=== PATIENT | female | born 1960 | race Caucasian/White ===

== ENCOUNTER 2024-07-02 01:31 | Day surgery (SDC) | payer MEDICARE, MEDICAID, SELFPAY ==
[2024-06-25 09:32] VITALS: BMI 46.5
--- OUTSIDE RECORDS SUMMARY | 2024-07-02 01:34 | XMS_ITS | Patient Health Record ---
Author Organization [facility] Address [address] [place] [address] Care Team Providers Care Gas Cutter Name Role Phone Alen Gay Primary Care Provider [phone] Juancarlos Goyal Unavailable [phone] Peggy Healy Unavailable [phone] CarieMikai Unavailable [phone] Allergies No Known Allergies Results Component Value Reference Range Notes CBC With Differential/Platel et* Reviewed date:11/11/2023 10:53:24 AM Interpretation: Performing Lab:[facility] [place], [address] [facility], [place], Phone - [phone], Director - Niraj Notes/Report: WBC 13.5 3.4-10.8 x10E3/uL RBC 4.42 3.77-5.28 x10E6/uL Hemoglobin 13.2 11.1-15.9 g/dL Hematocrit 40.9 34.0-46.6 % MCV 93 79-97 fL MCH 29.9 26.6-33.0 pg MCHC 32.3 31.5-35.7 g/dL RDW 14.4 11.7-15.4 % Platelets 269 150-450 x10E3/uL Neutrophils 50 Not Estab. % Lymphs 30 Not Estab. % Monocytes 19 Not Estab. % Eos 0 Not Estab. % Basos 0 Not Estab. % Neutrophils (Absolute) 6.8 1.4-7.0 x10E3/uL Lymphs (Absolute) 4.0 0.7-3.1 x10E3/uL Monocytes(Absolute) 2.5 0.1-0.9 x10E3/uL Eos (Absolute) 0.0 0.0-0.4 x10E3/uL Baso (Absolute) 0.0 0.0-0.2 x10E3/uL Immature Granulocytes 1 Not Estab. % Immature Grans (Abs) 0.2 0.0-0.1 x10E3/uL (An elevated percentage of Immature Granulocytes has not been found to be clinically significant as a sole clinical predictor of disease. Does NOT include bands or blast cells. associated physiological leukocytosis may also show increased immature granulocytes without clinical significance.) TSH Rfx on Abnormal to Free T4 Reviewed date:11/11/2023 10:53:24 AM Interpretation: Performing Lab:[facility] [place], [address] [place] [address], Phone - [phone], [facility]Report: TSH 2.240 0.450-4.500 uIU/mL Lipid Panel* Reviewed date:11/11/2023 10:53:24 AM Interpretation: Performing Lab:[facility] [place], [address] [place] [address], Phone - [phone], [facility]/Report: Cholesterol, Total 184 100-199 mg/dL Triglycerides 168 0-149 mg/dL HDL Cholesterol 54 >39 mg/dL VLDL Cholesterol Javier 29 5-40 mg/dL LDL Chol Calc (NIH) 101 0-99 mg/dL CMP 14 Comprehensive Metabol ic Panel* Reviewed date:11/11/2023 10:53:24 AM Interpretation: Performing Lab:[facility] [place], [address] [place] [address], Phone - [phone], [facility]/Report: Glucose 102 70-99 mg/dL BUN 20 8-27 mg/dL Creatinine 0.63 0.57-1.00 mg/dL eGFR 99 >59 mL/min/1.73 BUN/Creatinine Ratio 32 12-28 Sodium 138 134-144 mmol/L Potassium 4.6 3.5-5.2 mmol/L Chloride 100 96-106 mmol/L Carbon Dioxide, Total 22 20-29 mmol/L Calcium 10.2 8.7-10.3 mg/dL Protein, Total 7.2 6.0-8.5 g/dL Albumin 4.3 3.9-4.9 g/dL Globulin, Total 2.9 1.5-4.5 g/dL Bilirubin, Total <0.2 0.0-1.2 mg/dL Alkaline Phosphatase 96 44-121 IU/L AST (SGOT) 15 0-40 IU/L ALT (SGPT) 16 0-32 IU/L Vitamin D, 25-Hydroxy* Reviewed date:11/11/2023 10:53:24 AM Interpretation: Performing Lab:[facility] [place], [address] [facility], Phone - [phone], Director - PhDAmrita Notes/Report: Vitamin D, 25-Hydroxy 31.8 30.0-100.0 ng/mL Vitamin D deficiency has been defined by the [place] of Medicine and an Endocrine Society practice guideline as a level of serum 25-OH vitamin D less than 20 ng/mL (1,2). The Endocrine Society went on to further define vitamin D insufficiency as a level between 21 and 29 ng/mL (2). 1. IOM ([place] of Medicine). 2010. Dietary reference intakes for calcium and D. [place]: The National Academies Press. 2. Toby MF, Shawn MARVIN, Robyn JENKINS, et al. Evaluation, treatment, and prevention of vitamin D deficiency: an Endocrine Society clinical practice guideline. JCEM. 2010; 96(7):1911-30. Hemoglobin A1c* Reviewed date:11/11/2023 10:53:24 AM Interpretation: Performing Lab:[facility] [place], [address] [facility], Phone - [phone], Director - PhDRicmekhii Notes/Report: Hemoglobin A1c 5.7 4.8-5.6 % . Prediabetes: 5.7 - 6.4 Diabetes: >6.4 Glycemic control for adults with diabetes: <7.0 Reason For Referral Reason Pt would like to re- engage in therapy. She just lost her brother on 06/28/2023. She would also like information on grief groups. Diagnosis 1 PTSD (post-traumatic stress disorder) (F43.10) Diagnosis 2 Depression (F32.9) Referral Organization [facility] Referring Provider First Name Chichi Referring Provider Last Name Carie Referring Provider Speciality Psychiatry Referred Provider Specialty [facility]al [facility] Clinical Notes Gwen Davies 07/27 01:06:08 PM >Attempt to contact Consumer. Unable to reach Consumer at this time., Gwen Davies 08/07/2023 08:19:58 AM >Staff ATTILA talks to Consumer. Consumer is in agreement with referral. [facility] resources is given to Consumer. Consumer states they plan on following up but must attend to other business now. Referral addressed, closing. Referral Priority Routine Medications Medication SIG (Take, Route, Frequency, Duration) Notes Start Date End Date Status Mounjaro 5 MG/0.5ML INJECT 5MG SUBCUTANEOUSLY EVERY WEEK for 28 Active tiZANidine HCl 4 MG TAKE 1 TABLET BY BAKARI TH THREE TIMES DAILY NEEDED FOR MUSCULOSKELETAL PAIN for 30 Active traMADol HCl 100 MG 1 tablet Orally once daily Active Diclofenac Sodium 75 MG 1 tablet as need ed Orally Twice a day Active Gabapentin 300 MG 1 capsule Orally at night Active Ergocalciferol 1.25 MG (60863 UT) 1 capsule Orally monthly Act pedrito Senna 8.6 MG 2 tablets at bedtime as needed Orally Once a day for 30 days 06/17/2024 Active Sertraline HCl 100 MG 1 tablet Orally On ce a day in the afternoon for 30 days 06/11/2024 Active hydrOXYzine Pamoate 50 MG 1 capsule Orally Three times a day for 30 days As needed for anxiety Active busPIRone HCl 10 MG 1 tablet Orally Thre e times a day for 30 days 04/20/2024 Active ARIPiprazole 5 MG 1 tablet Orally Once a day for 30 days 04/20/2024 Active diazePAM 2 MG 1 tablet as needed f or anxiety Orally twice a day 06/03/2024 Active Fluticasone-Salmeterol 250-50 MCG/ACT INHALE 1 PUFF TWICE A DAY for 30 Not-Taking Fish Oil 1000 mg TAKE 1 CAPSULE BY [facility] DAILY for 30 Active Promethazine-DM 6.25-15 MG/5ML 5 mL as needed Orally every 6 hrs As needed cough 01/24/2023 Active Benzonatate 100 MG 1 capsule as needed Orally Three times a day for 10 days As needed FOR COUGH 01/07/2023 Active Naltrexone HCl 50 mg TAKE 1 TABLET BY MO [facility] DAILY for 30 Active Zolpidem Tartrate ER 6.25 MG 2 tablets at bedtime as needed Orally Once a day for 7 days 06/12/2024 Active Zolpidem Tartrate ER 12.5 MG 1 tablet at bedtime as needed only for insomnia Orally Once a day. Do NOT take with opioids or alcohol. for 30 days 06/17/2024 Active Immunizations Vaccine Route Administration Date Status Comme nts Tdap IM Intramuscular 12/02/2023 Administered FLU VAC NO PRSV 4VAL 6 mo+ IM Intramuscular 11/19/2021 Administered Pt tolerated injection well FLU VAC NO PRSV 4VAL 6 mo+ IM Intramuscular 11/20/2022 Administered FLU VAC NO PRSV 4VAL 6 mo+ IM Intramuscular 12/02/2023 Administered Social History Tobacco Use: Social History Observation Description Date Details (start date - stop date) Current Smoker NA - NA Sex Assigned At : Social History Observation Description Sex Assigned At Female Alcohol Screen (Audit-C) Question Answer Notes Did you have a drink containing alcohol in the p ast year? No Points 0 Interpretation Negative Dont use, Tobacco use other than smoking: Question Answer Notes Are you an other tobacco user? No Tobacco Control (Standard) Question Answer Notes Tobacco use: Current every day smoker Additional Findings: Tobacco user Moderate cigar ette smoker (10-19 cigs/day) Section Notes: PRESCRIPTION # FILLED WRITTEN DRUG LABEL QTY DAYS STRENGTH MME PRESCRIBER PHARMACY REFILL NO. REFILLS STATE 10/09/2022 10/09/2022 traMADol HYDROCHLORIDE 30.0 30 300 MG 30 SatishKenzie [id number] [place], [place] NA 0 [place] 1 [id number] 09/11/2022 06/11/2022 Gabapentin 90.0 30 300 MG NA Jose E Vilchis Md [id number] [place], [place] NA 2 [place] 1 [id number] 08/28/2022 08/21/2022 traMADol HYDROCHLORIDE 30.0 30 300 MG 30 Satish Kenzie - [id number] [place], [place] NA 0 [place] 1 [id number] 07/31/2022 06/11/2022 Gabapentin 90.0 30 300 MG Jose E Emery Md [id number] PRESCRIPTION # FILLED WRITTEN DRUG LABEL QTY DAYS STRENGTH MME PRESCRIBER PHARMACY REFILL NO. REFILLS STATE 06/11/2022 06/11/2022 Gabapentin 90.0 30 300 MG NA Jose E Vilchis Md [id number] [facility], [place] NA 2 [place] 1 [id number] 05/22/2022 04/30/2022 traMADol HYDROCHLORIDE 30.0 30 300 MG 30 Kenzie Covarrubias Jeovany [id number] [facility], [place] NA 0 [place] 1 [id number] 05/22/2022 05/22/2022 Gabapentin 30.0 30 300 MG NA Alen Gay Md [id number] PRESCRIPTION # FILLED WRITTEN DRUG LABEL QTY DAYS STRENGTH MME PRESCRIBER PHARMACY REFILL NO. REFILLS STATE 06/11/2022 06/11/2022 Gabapentin 90.0 30 300 MG NA Jose E Vilchis Md [id number] [place], [place] NA 2 [place] 1 [id number] 05/22/2022 04/30/2022 traMADol HYDROCHLORIDE 30.0 30 300 MG 30 Satish Kenzie Jeovany [id number] [facility], [place] 1 [id number] 05/22/2022 05/22/2022 Gabapentin 30.0 30 300 MG NA Alen Gay Md [id number] PRESCRIPTION # FILLED WRITTEN DRUG LABEL QTY DAYS STRENGTH MME PRESCRIBER PHARMACY REFILL NO. REFILLS STATE 10/09/2022 10/09/2022 traMADol HYDROCHLORIDE 30.0 30 300 MG 30 Satish Kenzie Jeovany [id number] [facility], [place] 1 [id number] 09/11/2022 06/11/2022 Gabapentin 90.0 30 300 MG NA Jose E Vilchis Md [id number] [facility], [place] 1 [id number] 08/28/2022 08/21/2022 traMADol HYDROCHLORIDE 30.0 30 300 MG 30 Satish Kenzie Jeovany [id number] [place], [place] NA 0 [place] 1 [id number] 07/31/2022 06/11/2022 Gabapentin 90.0 30 300 MG NA Jose E Vilchis Md [id number] PRESCRIPTION # FILLED WRITTEN DRUG LABEL QTY DAYS STRENGTH MME PRESCRIBER PHARMACY REFILL NO. REFILLS STATE 07/11/2023 07/09/2023 traMADol HCL 30.0 30 300 MG 30 Kenzie Covarrubias Jeovany [id number] [facility] [place] [facility] [place] 1 [id number] 06/11/2023 05/29/2023 traMADol HCL 30.0 30 300 MG 30 Kenzie Covarrubias Jeovany [id number] [facility], [place] 1 [id number] 06/09/2023 06/09/2023 Gabapentin 90.0 30 600 MG NA Jose E Vilchis Md [id number] [facility], [place] 1 [id number] 05/09/2023 04/24/2023 traMADol HCL 30.0 30 300 MG 30 Kenzie Covarrubias Jeovany [id number] [place] PRESCRIPTION # FILLED WRITTEN DRUG LABEL QTY DAYS STRENGTH MME PRESCRIBER PHARMACY REFILL NO. REFILLS STATE 07/11/2023 07/09/2023 traMADol HCL 30.0 30 300 MG 30 Kenzie Covarrubias Jeovany [id number] [facility], [place] 1 [id number] 06/11/2023 05/29/2023 traMADol HCL 30.0 30 300 MG 30 Kenzie Covarrubias Jeovany [id number] [facility], [place] 1 [id number] 06/09/2023 06/09/2023 Gabapentin 90.0 30 600 MG NA Jose E Vilchis Md [id number] [facility], [place] 1 [id number] 05/09/2023 04/24/2023 traMADol HCL 30.0 30 300 MG 30 Satish Kenzie Jeovany [id number] [place] PRESCRIPTION #FILLEDWRITTEND RUG LABELQTYDAYSSTRENGTHMMEPRESCRIBERPHARMACYREFILL NO.REFILLSSTATEPATIENT [id number] [id number] YQ85GfntiunKenzie Covarrubias [id number] Frick Hospital, [id number]//3613Dmnvujrcms80.721256 MGNAMJose E swanson Md [id number] Frick Hospital, [id number]/29/202311/traMADol HCL30.893217 WS57PcbwsagKenzie Covarrubias - [id number] PRESCRIPTION # FILLED WRITTEN DRUG LABEL QTY DAYS STRENGTH MME PRESCRIBER PHARMACY REFILL NO. REFILLS STATE 07/11/2023 07/09/2023 traMADol HCL 30.0 30 300 MG 30 Kenzie Covarrubias Jeovany [id number] [facility], [place] 1 [id number] 06/11/2023 05/29/2023 traMADol HCL 30.0 30 300 MG 30 Satish Kenzie Jeovany [id number] [place], [place] NA 0 [place] 1 [id number] 06/09/2023 06/09/2023 Gabapentin 90.0 30 600 MG NA Jose E Vilchis Md [id number] [place], [place] NA 0 [place] 1 [id number] 05/09/2023 04/24/2023 traMADol HCL 30.0 30 300 MG 30 Kenzie Covarrubias - [id number] [place] PRESCRIPTION # FILLED WRITTEN DRUG LABEL QTY DAYS STRENGTH MME PRESCRIBER PHARMACY REFILL NO. REFILLS STATE 06/24/2022 06/24/2022 traMADol HYDROCHLORIDE 30.0 30 300 MG 30 Satish Kenzie Jeovany [id number] [facility], [place] 1 [id number] 06/11/2022 06/11/2022 Gabapentin 90.0 30 300 MG NA Jose E Vilchis Md [id number] [facility], [place] 2 [place] 1 [id number] 05/22/2022 04/30/2022 traMADol HYDROCHLORIDE 30.0 30 300 MG 30 Satish Kenzie Jeovany [id number] PRESCRIPTION # FILLED WRITTEN DRUG LABEL QTY DAYS STRENGTH MME PRESCRIBER PHARMACY REFILL NO. REFILLS STATE 09/11/2022 06/11/2022 Gabapentin 90.0 30 300 MG NA Jose E Vilchis Md [id number] [facility], [place] 2 [place] 1 [id number] 08/28/2022 08/21/2022 traMADol HYDROCHLORIDE 30.0 30 300 MG 30 Kenzie Covarrubias [id number] [facility], [place] 1 [id number] 07/31/2022 06/11/2022 Gabapentin 90.0 30 300 MG NA [place] PRESCRIPTION # FILLED WRITTEN DRUG LABEL QTY DAYS STRENGTH MME PRESCRIBER PHARMACY REFILL NO. REFILLS STATE 10/09/2022 10/09/2022 traMADol HYDROCHLORIDE 30.0 30 300 MG 30 Kenzie Covarrubias Jeovany [id number] [facility], [place] 1 [id number] 09/11/2022 06/11/2022 Gabapentin 90.0 30 300 MG NA Jose E Vilchis Md [id number] [place], [place] NA 2 [place] 1 [id number] 08/28/2022 08/21/2022 traMADol HYDROCHLORIDE 30.0 30 300 MG 30 Kenzie Covarrubias Jeovany [id number] [facility], [place] 1 [id number] 07/31/2022 06/11/2022 Gabapentin 90.0 30 300 MG NA Jose E Vilchis Md [id number] PRESCRIPTION # FILLED WRITTEN DRUG LABEL QTY DAYS STRENGTH MME PRESCRIBER PHARMACY REFILL NO. REFILLS STATE 07/11/2023 07/09/2023 traMADol HCL 30.0 30 300 MG 30 Kenzie Covarrubias Jeovany [id number] [facility], [place] 1 [id number] 06/11/2023 05/29/2023 traMADol HCL 30.0 30 300 MG 30 Kenzie Covarrubias Jeovany [id number] [facility], [place] 1 [id number] 06/09/2023 06/09/2023 Gabapentin 90.0 30 600 MG NA Jose E Vilchis Md [id number] [place], [place] NA 0 [place] 1 [id number] 05/09/2023 04/24/2023 traMADol HCL 30.0 30 300 MG 30 Satish [address] [id number] [facility] PRESCRIPTION #FILLEDWRITTEND RUG LABELQTYDAYSSTRENGTHMMEPRESCRIBERPHARMACYREFILL NO.REFILLSSTATEPATIENT [id number]//09/2023traMADol HCL30.719641 XJ72Knohqhq, Kenzie [id number] Frick Hospital, [id number]//09/2023traMADol HCL30.304476 BN25Hkmgemf, Kenzie [id number] Frick Hospital, [id number]//08/2022traMADol HCL15.300696 NJ85Igipknf, [facility] [id number] PRESCRIPTION # FILLED WRITTE N DRUG LABEL QTY DAYS STRENGTH MME PRESCRIBER PHARMACY REFILL NO. REFILLS STATE PATIENT [id number] 06/11/2023 05/29/2023 traMADol HCL 30.0 30 300 MG 30 Kenzie Covarrubias [id number] [facility], [place] 0 [place] [id number] 06/09/2023 06/09/2023 Gabapentin 90.0 30 600 MG NA Jose E Vilchis Md - [id number] [facility], [place] NA 0 [place] [id number] 05/09/2023 04/24/2023 traMADol HCL 30.0 30 300 MG 30 Kenize Covarrubias [id number] [facility], [place] 0 [place] [id number] 03/28/2023 03/20/2023 traMADol HCL 30.0 30 300 MG 30 Kenzie Covarrubias [id number] [facility] PRESCRIPTION # FILLED WRITTEN DRUG LABEL QTY DAYS STRENGTH MME PRESCRIBER PHARMACY REFILL NO. REFILLS STATE 07/11/2023 07/09/2023 traMADol HCL 30.0 30 300 MG 30 Kenzie Covarrubias [id number] [facility], [place] 1 [id number] 06/11/2023 05/29/2023 traMADol HCL 30.0 30 300 MG 30 Kenzie Covarrubias [id number] [facility], [place] NA 0 [place] 1 [id number] 06/09/2023 06/09/2023 Gabapentin 90.0 30 600 MG NA Jose E Vilchis Md [id number] [place], [place] NA 0 [place] 1 [id number] 05/09/2023 04/24/2023 traMADol HCL 30.0 30 300 MG 30 Kenzie Covarrubias [id number] [facility] PRESCRIPTION # FILLED WRITTE N DRUG LABEL QTY DAYS STRENGTH MME PRESCRIBER PHARMACY REFILL NO. REFILLS STATE PATIENT [id number] 02/26/2023 02/17/2023 traMADol HCL 30.0 30 300 MG 30 Kenzie Covarrubias [id number] [place], [place] NA 0 [place] [id number] 02/08/2023 01/16/2023 traMADol HCL 15.0 15 300 MG 30 Kenzie Covarrubias [id number] [place], [place] NA 0 [place] [id number] 01/15/2023 12/17/2022 Gabapentin 90.0 30 600 MG NA Jose E Vilchis Md [id number] [facility] PRESCRIPTION # FILLED WRITTE N DRUG LABEL QTY DAYS STRENGTH MME PRESCRIBER PHARMACY REFILL NO. REFILLS STATE PATIENT [id number] 05/09/2023 04/24/2023 traMADol HCL 30.0 30 300 MG 30 Kenzie Covarrubias [id number] [facility] [place] [facility] [place] [id number] 03/28/2023 03/20/2023 traMADol HCL 30.0 30 300 MG 30 Kenzie Covarrubias [id number] [facility] [place] [facility] [place] [id number] 02/26/2023 02/17/2023 traMADol HCL 30.0 30 300 MG 30 Kenzie Covarrubias [id number] [facility] Problems Problem Type SNOMED Code ICD Code Onset Dates Problem Status W/U Status Risk Notes Problem Morbid obesity (disorder) (771136490) Morbid (severe) obesity due to excess calories (E66.01) Active confirmed Problem Tobacco user (966812958) Nicotine dependence, unspecified, uncomplicated (F17.200) Active confirmed Problem Generalized anxiety disorder (92005349) Generalized anxiety disorder (F41.1) Active confirmed Problem Acute stress reaction (03344024) Acute stress reaction (F43.0) Active confirmed Problem 21058247 Insomnia due to other mental disorder (F51.05) Active confirmed Problem 41303881 Obstructive sleep apnea (adult) (pediatric) (G47.33) Active confirmed Problem 47298943 Other chronic pain (G89.29) Active confirmed Problem 04505137457638866 Sciatica, righ t side (M54.31) Active confirmed Problem 92778756 Sciatica, left side (M54.32) Active confirmed Problem 569781091 Fibromyalgia (M79.7) Active confirmed Problem 24323136 Age-related osteoporosis without current pathological fracture (M81.0) Active confirmed Problem 612001110 Dependence on other enabling machines and devices (Z99.89) 021 Active confirmed Problem Depression (180933587) Depression (F32.9) 019 Active confirmed Problem Insomnia (226375852) Insomnia (G47.00) Active confirmed Problem Posttraumatic stress disorder (06043277) PTSD (post-traumatic stress disorder) (F43.10) Active confirmed Problem COPD - Chronic obstructive pulmonary disease (51027216) COPD (chronic obstructive pulmonary disease) (J44.9) Active confirmed Problem Vitamin D deficiency (72692428) Vitamin D deficiency (E55.9) Active confirmed Problem 372360948 Morbid obesity (E66.01) Active confirmed Problem Sleep apnea (85573372) Sleep apnea (G47.30) Active confirmed WEARS CPAP AND OXYGEN AT NIGHT Problem 327720319 COPD exacerbation (J44.1) Active confirmed Problem Restless legs (55050704) Restless legs (G25.81) Active confirmed Problem Constipation (03455351) Constipation (K59.00) Active confirmed Problem 11546913 Chronic fatigue (R53.82) Active confirmed Problem 780319383 Type 2 diabetes mellitus without complication, without long-term current use of insulin (E11.9) 021 Active confirmed Problem 91236757 Sleep apnea, unspecified type (G47.30) Active confirmed Problem 598092399 Primary osteoarthritis of both knees (M17.0) Active confirmed Problem Chronic rhinitis (61935218) Rhinitis, unspecified type (J31.0) Active confirmed Problem Nicotine use disorder (2529192161) Nicotine use disorder (F17.200) Active confirmed Problem Tobacco use (847077862) Tobacco use disorder (F17.200) Active confirmed Problem 782276386 Sensorineural hearing loss (SNHL) of both ears (H90.3) Active confirmed Problem 393975921 Decreased hearing of both ears (H91.93) Active confirmed Problem Morbid obesity (218796704) Obesity, morbid, BMI 40.0-49.9 (E66.01) Active confirmed Problem 33677141 Pulmonary hypertension (I27.20) Active confirmed Problem 579544568 Uncomplicated asthma, unspecified asthma severity, unspecified whether persistent (J45.909) Active confirmed Problem 0991639119645263 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) Active confirmed Problem 79393662 Left ventricular hypertrophy (I51.7) 021 Active confirmed WITH LVEF 55% Problem 016354 Mild valvular heart disease (I38) 021 Active confirmed AR, MR, TR Vital Signs Heart Rate 122 /min 06/16/2024 Respiratory Rate 16 /min 12/02/2023 Oximetry 98 % 06/16/2024 Blood pressure diastolic 82 mm Hg 06/16/2024 Height 59 in 06/16/2024 Blood pressure systolic 128 mm Hg 06/16/2024 Weight 232.8 lbs 06/16/2024 BMI 47.01 kg/m2 06/16/2024 Encounters Encounter Location Date Provider Diagnosis [address] [address] 11/06/2023 Alen Gay [address] [address] 07/28/2023 Chichi Darnell Depression F32.9 ; PTSD (post-traumatic stress disorder) F43.10 and Nicotine use disorder F17.[address] [address] 10/27/2023 Juancarlos Goyal Nicotine dependence, unspecified, uncomplicated F17.200 ; Depression F32.9 ; PTSD (post-traumatic stress disorder) F43.10 and Insomnia G47.[address] [address] 11/06/2023 Alen Gay Primary osteoarthritis of both knees M17.0 ; Type 2 diabetes mellitus without complication, without long-term current use of insulin E11.9 ; Vitamin D deficiency E55.9 ; Fatigue R53.83 ; Occult blood in stools R19.5 ; Screening for colon cancer Z12.11 ; Breast cancer screening by mammogram Z12.31 ; Nutritional counseling Z71.3 and Obesity, morbid, BMI 40.0-49.[address] [address] 11/24/2023 Juancarlos Goyal Depression F32.9 ; PTSD (post-traumatic stress disorder) F43.10 and Insomnia G47.[address] [address] 12/02/2023 Alen Gay Type 2 diabetes mellitus without complication, without long-term current use of insulin E11.9 ; Morbid (severe) obesity due to excess calories E66.01 and Encounter for immunization Z23 [address] [address] 12/24/2023 Juancarlos Goyal Depression F32.9 ; Insomnia G47.00 and PTSD (post-traumatic stress disorder) F43.[address] [address] 03/22/2024 Juancarlos Goyal Depression F32.9 ; Insomnia G47.00 and PTSD (post-traumatic stress disorder) F43.[address] [address] 04/20/2024 Juancarlos Goyal Depression F32.9 ; Insomnia G47.00 and PTSD (post-traumatic stress disorder) F43.[address] [address] 05/06/2024 Juancarlos Goyal Depression F32.9 ; Insomnia due to other mental disorder F51.05 ; PTSD (post-traumatic stress disorder) F43.10 and Constipation K59.[address] [address] 06/16/2024 Juancarlos Goyal Depression F32.9 ; Insomnia due to other mental disorder F51.05 ; PTSD (post-traumatic stress disorder) F43.10 ; Constipation K59.00 and Acute stress reaction F43.[address] [address] 08/07/2023 Peggy Niraj [address] [address] 10/15/2023 Juancarlos Goyal Depression F32.9 and PTSD (post-traumatic stress disorder) F43.[address] [address] 10/27/2023 Alen Gay Encounter for screening mammogram for breast cancer Z12.[address] [address] 10/27/2023 Juancarlos Goyal [address] [address] 11/19/2023 Juancarlos Goyal [address] [address] 11/24/2023 Juancarlos Goyal Insomnia due to othe r mental disorder F51.[address] [address] 11/24/2023 Alen Gay [address] [address] 12/11/2023 Juancarlos Goyal Depression F32.9 [facility] [address] [place] [address] 12/15/2023 Juancarlos Goyal Insomnia G47.00 [facility] [address] [place] [address] 04/19/2024 Juancarlos Goyal [facility] [address] [address] 04/21/2024 Juancarlos Goyal Insomnia G47.00 [facility] [address] [place] [address] 06/02/2024 Juancarlos Goyal Acute stress reactio n F43.0 [facility] [address] [place] [address] 06/11/2024 Juancarlos Goyal Depression F32.9 ; PTSD (post-traumatic stress disorder) F43.10 and Insomnia due to other mental disorder F51.05 [facility] [address] [place] [address] 06/17/2024 Juancarlos Goyal Assessments Encounter Date Diagnosis (ICD Code) Assessment Notes Treatment Notes Treatment Clinical Notes Section Notes 12/02/2023 Type 2 diabetes mellitus without complication, without long-term current use of insulin (ICD-10 - E11.9) 11/24/2023 Insomnia due to other mental disorder (ICD-10 - F51.05) 06/16/2024 Depression (ICD-10 - F32.9) Client maintain relative stability given her 1 year old dog was struck and killed by an automobile a week ago and she was tightly bonded to the dog. This was large loss in a series of emotional losses over the last few years. Client has reached a better level of mental stability in last month on combination of Abilify, Zoloft, Buspar, Hydroxyzine and use of extended release Ambien for sleep. She has had very disrupted sleep impacted by her depression and anxiety. She has a lot of medical comorbidities and every effort has been made to utilize other medications for sleep over the years with no result and her mental health has seemed to continue to decline. Trazodone, doxepin, Seroquel, mirtazpine, Ramelteon, melatonin, clonodine, visteril dosed at night, immediate release Ambien have all failed. She does wear a CPAP and sees sleep medicine and nursing has updated their office on trials of these sleep medications. She found a moderate level of relief with 6.25 mg of ER Zolipidem but was finally able to sleep throughout the night with 12.5 mg of Zolipidem and has been sleeping through the night. Her anxiety level is notably down comparative to recent past despite this intense loss. She states she does not want to change her medicine treatment plan but wants to go through the grieving process for her dog and then reassess. She has the crisis line and is aware therapy services are available. 06/11/2024 Depression (ICD-10 - F32.9) 04/21/2024 Insomnia (ICD-10 - G47.00) 05/06/2024 Insomnia due to other mental disorder (ICD-10 - F51.05) 05/06/2024 Depression (ICD-10 - F32.9) 04/20/2024 Depression (ICD-10 - F32.9) Client struggling with severe depression and anxiety excerbated by lack of sleep. Sleep difficult to balance given hx of medical comorbities (including sleep apnea). She has failed multiple sleep aides: Remeron, trazodone, doxepin, ambien. Her sleep cycle is not being extended by Ambien immediate release and this is why Ambien extended release in its lowest dose was written for in generic form. Client does not feel her depression has been assisted by Rexulti or bupropion and wants these medications discontinued and replaced by something else . Discussed raising dose of sertraline to 100 mg and adding aripiprazole to treatment plan in place of Rexulti. She is agreeable after risk versus benefit discussed. Buspar readded to tx plan and hydroxzyine dose increased to tx her severe anxiety. Client warned about anticholinergic side effects and what to look for. Client given crisis line number and asked to call if needed. 07/28/2023 Depression (ICD-10 - F32.9) PHQ-9 is 19 today. Pt refuses warm handoff to crisis. Continue Wellbutrin to augement duloxetine. Discussed risks, benefits, and side effects. Encouraged therapy. Follow up in 1 month 11/06/2023 Type 2 diabetes mellitus without complication, without long-term current use of insulin (ICD-10 - E11.9) 11/06/2023 Primary osteoarthritis of both knees (ICD-10 - M17.0) 06/02/2024 Acute stress reaction (ICD-10 - F43.0) 12/02/2023 Morbid (severe) obesity due to excess calories (ICD-10 - E66.01) INCREASE RESISTANCE EXERCISES AND CHAIR YOGA TO 20-30 MINUTES PER DAY 10/27/2023 Encounter for screening mammogram for breast cancer (ICD-10 - Z12.31) Patient Educated with: Mammogram - About this test.pdf (Mammogram - About this test.pdf) Patient Educated with: Learning about Breast Cancer Screenings.pdf (Learning about Breast Cancer Screenings.pdf) 10/27/2023 Nicotine dependence, unspecified, uncomplicated (ICD-10 - F17.200) Client has failed mirtazapine, hydroxyzine, doxepin, trazodone, prazosin, clonidine, aggressive sleep hygiene for insomnia. Already wears CPAP. States she lies in bed for hours with anxiety. Has only been getting a few hours of sleep a night for as long as I can remember but its been getting worse with my grief of my brother for the past few months . Sleep medicine aware mental health writing for sleep aides. Had mask/machine adjusted last month per her report. Discussed a few different treatment options and client would like to trial a combination approach of low dose Rexulti (for anxiety/PTSD/dep ression) and low dose Ambien (for continued and progressive insomnia). The risk vs benefit of these medications, particularly at client's age and medical co-morbidities, were discussed. Given what client has failed already, it is reasonable to transition to next line agents at low dose and closely monitor. Additionally the risk of Ambien 2.5 mg-5 mg and Rexulti 0.5 mg presents comparative to 50 mg TID dosing of hydroxyzine paired with 25 mg of doxepin would not be more burdensome - Buspar, doxepin, and hydroxyzine dcd due to ineffectiveness and client has not been taking for a few weeks. Encouraged client to re-engage in grief support group and states she is seriously considering. 10/27/2023 Depression (ICD-10 - F32.9) Client has failed mirtazapine, hydroxyzine, doxepin, trazodone, prazosin, clonidine, aggressive sleep hygiene for insomnia. Already wears CPAP. States she lies in bed for hours with anxiety. Has only been getting a few hours of sleep a night for as long as I can remember but its been getting worse with my grief of my brother for the past few months . Sleep medicine aware mental health writing for sleep aides. Had mask/machine adjusted last month per her report. Discussed a few different treatment options and client would like to trial a combination approach of low dose Rexulti (for anxiety/PTSD/dep ression) and low dose Ambien (for continued and progressive insomnia). The risk vs benefit of these medications, particularly at client's age and medical co-morbidities, were discussed. Given what client has failed already, it is reasonable to transition to next line agents at low dose and closely monitor. Additionally the risk of Ambien 2.5 mg-5 mg and Rexulti 0.5 mg presents comparative to 50 mg TID dosing of hydroxyzine paired with 25 mg of doxepin would not be more burdensome - Buspar, doxepin, and hydroxyzine dcd due to ineffectiveness and client has not been taking for a few weeks. Encouraged client to re-engage in grief support group and states she is seriously considering. 10/15/2023 Depression (ICD-10 - F32.9) 03/22/2024 Depression (ICD-10 - F32.9) Client states she felt she was improved with her treatment plan but fell off. Wants to restart and reassess. 12/15/2023 Insomnia (ICD-10 - G47.00) 11/24/2023 Depression (ICD-10 - F32.9) Client has been assisted significantly by trial of Ambien as she has been able to procure 4 hours of sleep which is the most sleep she has had for many, many months. She is trying to lose weight due to her osteoarthritis and previous sleep aides were causing increase to weight and were not effective to insomnia. Client does take tramadol/gabapen tin for chronic pain, has been educated to not take near bedtime due to risk of respiratory depression. Client requests increase to Ambien. Has had no side effects and wears CPAP. DIscussed will need clearance from her ANOOP doctor given her hx of COPD and ANOOP. Will have nursing call Dr. Quintanilla to receive clearance. Client states her depression has lessened with Rexulti and bupropion, and she would like increases in this. She restarted BuSpar/hydroxyzi ne at noon only and feels this has helped her anxiety as well. Will restart these. 12/24/2023 Depression (ICD-10 - F32.9) Client c/o anxiety and depressive symptoms ongoing and insomnia but when questioned insomnia is better and client getting nearly 6 hours of sleep now. Was getting 3 hours when took over care. She states having increased anxiety in evenings, when alone, worsened with time change. Has had wt gain, but she states she has not been good with healthy food options and does not think it is the Rexulti but rather eating too much bad food and not enough exercise. Will continue to monitor. Buspar stopped and sertraline started to tx anxiety/PTSD (client keeps mixing up bupropion and buspirone due to how similar names are anyhow and this could be dangerous). She feels her anxiety is out of control still. She wants to take something in the afternoon. Discussed to take the sertraline in the afternoon. Hopeful this will pair well with the Wellbutrin and Rexulti for tx of PTSD. 12/11/2023 Depression (ICD-10 - F32.9) 12/24/2023 Insomnia (ICD-10 - G47.00) Client c/o anxiety and depressive symptoms ongoing and insomnia but when questioned insomnia is better and client getting nearly 6 hours of sleep now. Was getting 3 hours when took over care. She states having increased anxiety in evenings, when alone, worsened with time change. Has had wt gain, but she states she has not been good with healthy food options and does not think it is the Rexulti but rather eating too much bad food and not enough exercise. Will continue to monitor. Buspar stopped and sertraline started to tx anxiety/PTSD (client keeps mixing up bupropion and buspirone due to how similar names are anyhow and this could be dangerous). She feels her anxiety is out of control still. She wants to take something in the afternoon. Discussed to take the sertraline in the afternoon. Hopeful this will pair well with the Wellbutrin and Rexulti for tx of PTSD. 11/24/2023 PTSD (post-traumatic stress disorder) (ICD-10 - F43.10) Client has been assisted significantly by trial of Ambien as she has been able to procure 4 hours of sleep which is the most sleep she has had for many, many months. She is trying to lose weight due to her osteoarthritis and previous sleep aides were causing increase to weight and were not effective to insomnia. Client does take tramadol/gabapen tin for chronic pain, has been educated to not take near bedtime due to risk of respiratory depression. Client requests increase to Ambien. Has had no side effects and wears CPAP. DIscussed will need clearance from her ANOOP doctor given her hx of COPD and ANOOP. Will have nursing call Dr. Quintanilla to receive clearance. Client states her depression has lessened with Rexulti and bupropion, and she would like increases in this. She restarted BuSpar/hydroxyzi ne at noon only and feels this has helped her anxiety as well. Will restart these. 03/22/2024 Insomnia (ICD-10 - G47.00) Client states she felt she was improved with her treatment plan but fell off. Wants to restart and reassess. 10/27/2023 PTSD (post-traumatic stress disorder) (ICD-10 - F43.10) Client has failed mirtazapine, hydroxyzine, doxepin, trazodone, prazosin, clonidine, aggressive sleep hygiene for insomnia. Already wears CPAP. States she lies in bed for hours with anxiety. Has only been getting a few hours of sleep a night for as long as I can remember but its been getting worse with my grief of my brother for the past few months . Sleep medicine aware mental health writing for sleep aides. Had mask/machine adjusted last month per her report. Discussed a few different treatment options and client would like to trial a combination approach of low dose Rexulti (for anxiety/PTSD/dep ression) and low dose Ambien (for continued and progressive insomnia). The risk vs benefit of these medications, particularly at client's age and medical co-morbidities, were discussed. Given what client has failed already, it is reasonable to transition to next line agents at low dose and closely monitor. Additionally the risk of Ambien 2.5 mg-5 mg and Rexulti 0.5 mg presents comparative to 50 mg TID dosing of hydroxyzine paired with 25 mg of doxepin would not be more burdensome - Buspar, doxepin, and hydroxyzine dcd due to ineffectiveness and client has not been taking for a few weeks. Encouraged client to re-engage in grief support group and states she is seriously considering. 10/15/2023 PTSD (post-traumatic stress disorder) (ICD-10 - F43.10) 12/02/2023 Encounter for immunization (ICD-10 - Z23) Ordered per standing orders for administering influenza vaccine to adults. 07/28/2023 PTSD (post-traumatic stress disorder) (ICD-10 - F43.10) Remeron-not effective Trazodone-not effective Minipress-not effective Clonidine-not effective Continue buspirone Continue vistaril Encouraged therapy. 04/20/2024 Insomnia (ICD-10 - G47.00) Client struggling with severe depression and anxiety excerbated by lack of sleep. Sleep difficult to balance given hx of medical comorbities (including sleep apnea). She has failed multiple sleep aides: Remeron, trazodone, doxepin, ambien. Her sleep cycle is not being extended by Ambien immediate release and this is why Ambien extended release in its lowest dose was written for in generic form. Client does not feel her depression has been assisted by Rexulti or bupropion and wants these medications discontinued and replaced by something else . Discussed raising dose of sertraline to 100 mg and adding aripiprazole to treatment plan in place of Rexulti. She is agreeable after risk versus benefit discussed. Buspar readded to tx plan and hydroxzyine dose increased to tx her severe anxiety. Client warned about anticholinergic side effects and what to look for. Client given crisis line number and asked to call if needed. 05/06/2024 PTSD (post-traumatic stress disorder) (ICD-10 - F43.10) 06/16/2024 Insomnia due to other mental disorder (ICD-10 - F51.05) Client maintain relative stability given her 1 year old dog was struck and killed by an automobile a week ago and she was tightly bonded to the dog. This was large loss in a series of emotional losses over the last few years. Client has reached a better level of mental stability in last month on combination of Abilify, Zoloft, Buspar, Hydroxyzine and use of extended release Ambien for sleep. She has had very disrupted sleep impacted by her depression and anxiety. She has a lot of medical comorbidities and every effort has been made to utilize other medications for sleep over the years with no result and her mental health has seemed to continue to decline. Trazodone, doxepin, Seroquel, mirtazpine, Ramelteon, melatonin, clonodine, visteril dosed at night, immediate release Ambien have all failed. She does wear a CPAP and sees sleep medicine and nursing has updated their office on trials of these sleep medications. She found a moderate level of relief with 6.25 mg of ER Zolipidem but was finally able to sleep throughout the night with 12.5 mg of Zolipidem and has been sleeping through the night. Her anxiety level is notably down comparative to recent past despite this intense loss. She states she does not want to change her medicine treatment plan but wants to go through the grieving process for her dog and then reassess. She has the crisis line and is aware therapy services are available. 06/11/2024 PTSD (post-traumatic stress disorder) (ICD-10 - F43.10) 11/06/2023 Vitamin D deficiency (ICD-10 - E55.9) 11/06/2023 Fatigue (ICD-10 - R53.83) 06/16/2024 PTSD (post-traumatic stress disorder) (ICD-10 - F43.10) Client maintain relative stability given her 1 year old dog was struck and killed by an automobile a week ago and she was tightly bonded to the dog. This was large loss in a series of emotional losses over the last few years. Client has reached a better level of mental stability in last month on combination of Abilify, Zoloft, Buspar, Hydroxyzine and use of extended release Ambien for sleep. She has had very disrupted sleep impacted by her depression and anxiety. She has a lot of medical comorbidities and every effort has been made to utilize other medications for sleep over the years with no result and her mental health has seemed to continue to decline. Trazodone, doxepin, Seroquel, mirtazpine, Ramelteon, melatonin, clonodine, visteril dosed at night, immediate release Ambien have all failed. She does wear a CPAP and sees sleep medicine and nursing has updated their office on trials of these sleep medications. She found a moderate level of relief with 6.25 mg of ER Zolipidem but was finally able to sleep throughout the night with 12.5 mg of Zolipidem and has been sleeping through the night. Her anxiety level is notably down comparative to recent past despite this intense loss. She states she does not want to change her medicine treatment plan but wants to go through the grieving process for her dog and then reassess. She has the crisis line and is aware therapy services are available. 05/06/2024 Constipation (ICD-10 - K59.00) 04/20/2024 PTSD (post-traumatic stress disorder) (ICD-10 - F43.10) Client struggling with severe depression and anxiety excerbated by lack of sleep. Sleep difficult to balance given hx of medical comorbities (including sleep apnea). She has failed multiple sleep aides: Remeron, trazodone, doxepin, ambien. Her sleep cycle is not being extended by Ambien immediate release and this is why Ambien extended release in its lowest dose was written for in generic form. Client does not feel her depression has been assisted by Rexulti or bupropion and wants these medications discontinued and replaced by something else . Discussed raising dose of sertraline to 100 mg and adding aripiprazole to treatment plan in place of Rexulti. She is agreeable after risk versus benefit discussed. Buspar readded to tx plan and hydroxzyine dose increased to tx her severe anxiety. Client warned about anticholinergic side effects and what to look for. Client given crisis line number and asked to call if needed. 07/28/2023 Nicotine use disorder (ICD-10 - F17.200) 06/11/2024 Insomnia due to other mental disorder (ICD-10 - F51.05) 10/27/2023 Insomnia (ICD-10 - G47.00) Client has failed mirtazapine, hydroxyzine, doxepin, trazodone, prazosin, clonidine, aggressive sleep hygiene for insomnia. Already wears CPAP. States she lies in bed for hours with anxiety. Has only been getting a few hours of sleep a night for as long as I can remember but its been getting worse with my grief of my brother for the past few months . Sleep medicine aware mental health writing for sleep aides. Had mask/machine adjusted last month per her report. Discussed a few different treatment options and client would like to trial a combination approach of low dose Rexulti (for anxiety/PTSD/dep ression) and low dose Ambien (for continued and progressive insomnia). The risk vs benefit of these medications, particularly at client's age and medical co-morbidities, were discussed. Given what client has failed already, it is reasonable to transition to next line agents at low dose and closely monitor. Additionally the risk of Ambien 2.5 mg-5 mg and Rexulti 0.5 mg presents comparative to 50 mg TID dosing of hydroxyzine paired with 25 mg of doxepin would not be more burdensome - Buspar, doxepin, and hydroxyzine dcd due to ineffectiveness and client has not been taking for a few weeks. Encouraged client to re-engage in grief support group and states she is seriously considering. 03/22/2024 PTSD (post-traumatic stress disorder) (ICD-10 - F43.10) Client states she felt she was improved with her treatment plan but fell off. Wants to restart and reassess. 12/24/2023 PTSD (post-traumatic stress disorder) (ICD-10 - F43.10) Client c/o anxiety and depressive symptoms ongoing and insomnia but when questioned insomnia is better and client getting nearly 6 hours of sleep now. Was getting 3 hours when took over care. She states having increased anxiety in evenings, when alone, worsened with time change. Has had wt gain, but she states she has not been good with healthy food options and does not think it is the Rexulti but rather eating too much bad food and not enough exercise. Will continue to monitor. Buspar stopped and sertraline started to tx anxiety/PTSD (client keeps mixing up bupropion and buspirone due to how similar names are anyhow and this could be dangerous). She feels her anxiety is out of control still. She wants to take something in the afternoon. Discussed to take the sertraline in the afternoon. Hopeful this will pair well with the Wellbutrin and Rexulti for tx of PTSD. 11/24/2023 Insomnia (ICD-10 - G47.00) Client has been assisted significantly by trial of Ambien as she has been able to procure 4 hours of sleep which is the most sleep she has had for many, many months. She is trying to lose weight due to her osteoarthritis and previous sleep aides were causing increase to weight and were not effective to insomnia. Client does take tramadol/gabapen tin for chronic pain, has been educated to not take near bedtime due to risk of respiratory depression. Client requests increase to Ambien. Has had no side effects and wears CPAP. DIscussed will need clearance from her ANOOP doctor given her hx of COPD and ANOOP. Will have nursing call Dr. Quintanilla to receive clearance. Client states her depression has lessened with Rexulti and bupropion, and she would like increases in this. She restarted BuSpar/hydroxyzi ne at noon only and feels this has helped her anxiety as well. Will restart these. 11/06/2023 Occult blood in stools (ICD-10 - R19.5) 06/16/2024 Constipation (ICD-10 - K59.00) Client maintain relative stability given her 1 year old dog was struck and killed by an automobile a week ago and she was tightly bonded to the dog. This was large loss in a series of emotional losses over the last few years. Client has reached a better level of mental stability in last month on combination of Abilify, Zoloft, Buspar, Hydroxyzine and use of extended release Ambien for sleep. She has had very disrupted sleep impacted by her depression and anxiety. She has a lot of medical comorbidities and every effort has been made to utilize other medications for sleep over the years with no result and her mental health has seemed to continue to decline. Trazodone, doxepin, Seroquel, mirtazpine, Ramelteon, melatonin, clonodine, visteril dosed at night, immediate release Ambien have all failed. She does wear a CPAP and sees sleep medicine and nursing has updated their office on trials of these sleep medications. She found a moderate level of relief with 6.25 mg of ER Zolipidem but was finally able to sleep throughout the night with 12.5 mg of Zolipidem and has been sleeping through the night. Her anxiety level is notably down comparative to recent past despite this intense loss. She states she does not want to change her medicine treatment plan but wants to go through the grieving process for her dog and then reassess. She has the crisis line and is aware therapy services are available. 06/16/2024 Acute stress reaction (ICD-10 - F43.0) Client maintain relative stability given her 1 year old dog was struck and killed by an automobile a week ago and she was tightly bonded to the dog. This was large loss in a series of emotional losses over the last few years. Client has reached a better level of mental stability in last month on combination of Abilify, Zoloft, Buspar, Hydroxyzine and use of extended release Ambien for sleep. She has had very disrupted sleep impacted by her depression and anxiety. She has a lot of medical comorbidities and every effort has been made to utilize other medications for sleep over the years with no result and her mental health has seemed to continue to decline. Trazodone, doxepin, Seroquel, mirtazpine, Ramelteon, melatonin, clonodine, visteril dosed at night, immediate release Ambien have all failed. She does wear a CPAP and sees sleep medicine and nursing has updated their office on trials of these sleep medications. She found a moderate level of relief with 6.25 mg of ER Zolipidem but was finally able to sleep throughout the night with 12.5 mg of Zolipidem and has been sleeping through the night. Her anxiety level is notably down comparative to recent past despite this intense loss. She states she does not want to change her medicine treatment plan but wants to go through the grieving process for her dog and then reassess. She has the crisis line and is aware therapy services are available. 11/06/2023 Screening for colon cancer (ICD-10 - Z12.11) 11/06/2023 Breast cancer screening by mammogram (ICD-10 - Z12.31) 11/06/2023 Nutritional counseling (ICD-10 - Z71.3) 11/06/2023 Obesity, morbid, BMI 40.0-49.9 (ICD-10 - E66.01) 07/28/2023 Other Patient was educated on diagnosis and symptoms. Discussed the treatment plan, patient is agreeable and accepting of treatment plan. Patient denies further questions or concerns currently. Discussed sleep hygiene and caffeine intake. Encouraged to improve diet, get regular exercise, daily relaxation, and work on managing stress levels.Return to clinic 4 weeks.Labs are up to date. Referred for counseling.The Patient/Guardian is aware of the need to contact the office or return for an earlier appointment if any problems or concerns arise. May also contact the 24-hour crisis hotline (R), refer to the closest emergency room or call 911 if new symptoms arise of existing symptoms worsen; the Patient/Guardian is aware that this would apply to symptoms such as: suicidal ideation, homicidal ideation, high risk behaviors, manic symptoms, psychotic symptoms, physical symptoms, or any other symptoms that may be dangerous to self or others.Greater than 50% of time spent on coordination and counseling where psychopharmacology as well as psychotherapeutic interventions were discussed along with review of treatments in the past.Patient/Guardi an was educated about treatments including benefits and risks, alternatives, potential medication side effects, black box warning, and risks of failure if not treated. The Patient/Guardian asked appropriate questions, appeared to understand the answers, and decided to accept the treatment and continue being followed.Discussed the importance of compliance with medications due to the risk of relapse of symptoms.Discussed the risks of taking psychotropic medication when combined with substance use/abuse and/or drinking alcohol. [place]2023 [place]. [place] tramadol once daily [place]. Client has narcan as well per PCP. Discussed to take lowest dose (2.5 mg) of ambien if possible for shortest period of time needed for insomnia and to not take with alcohol or opioids. Client verbalizes understanding and agreement after risks of this medications were also discussed. Discussed sleep hygiene and caffeine intake with encouragement to limit electronic devices an hour before bed and to limit caffeine after 3:00pm. Exercise benefits for mood and health discussed. Psychoeducation regarding psychiatric illness provided. Client was educated about risks and benefits of medication, alternatives to medication, off label uses of medication, suicidal ideation with SSRIs, self-administration and compliance with medication along with how to safely store medication. Verbal informed consent obtained. Client agrees to return sooner if symptoms worsen or if suicidal or homicidal ideations occur. Client has the phone number to the 24-hour crisis line at [facility]. Questions addressed. Client verbalized understanding of all information and is agreeable to treatment plan. Client has failed mirtazapine, hydroxyzine, doxepin, trazodone, prazosin, clonidine, aggressive sleep hygiene for insomnia. Already wears CPAP. States she lies in bed for hours with anxiety. Has only been getting a few hours of sleep a night for as long as I can remember but its been getting worse with my grief of my brother for the past few months . Sleep medicine aware mental health writing for sleep aides. Had mask/machine adjusted last month per her report. Discussed a few different treatment options and client would like to trial a combination approach of low dose Rexulti (for anxiety/PTSD/dep ression) and low dose Ambien (for continued and progressive insomnia). The risk vs benefit of these medications, particularly at client's age and medical co-morbidities, were discussed. Given what client has failed already, it is reasonable to transition to next line agents at low dose and closely monitor. Additionally the risk of Ambien 2.5 mg-5 mg and Rexulti 0.5 mg presents comparative to 50 mg TID dosing of hydroxyzine paired with 25 mg of doxepin would not be more burdensome - Buspar, doxepin, and hydroxyzine dcd due to ineffectiveness and client has not been taking for a few weeks. Encouraged client to re-engage in grief support group and states she is seriously considering. [place]24[place]2023 [place]. Discussed sleep hygiene and caffeine intake with encouragement to limit electronic devices an hour before bed and to limit caffeine after 3:00pm. Exercise benefits for mood and health discussed. Psychoeducation regarding psychiatric illness provided. Client was educated about risks and benefits of medication, alternatives to medication, off label uses of medication, suicidal ideation with SSRIs, self-administration and compliance with medication along with how to safely store medication. Verbal informed consent obtained. Client agrees to return sooner if symptoms worsen or if suicidal or homicidal ideations occur. Client has the phone number to the 24-hour crisis line at [facility]. Questions addressed. Client verbalized understanding of all information and is agreeable to treatment plan. Client has been assisted significantly by trial of Ambien as she has been able to procure 4 hours of sleep which is the most sleep she has had for many, many months. She is trying to lose weight due to her osteoarthritis and previous sleep aides were causing increase to weight and were not effective to insomnia. Client does take tramadol/gabapen tin for chronic pain, has been educated to not take near bedtime due to risk of respiratory depression. Client requests increase to Ambien. Has had no side effects and wears CPAP. DIscussed will need clearance from her ANOOP doctor given her hx of COPD and ANOOP. Will have nursing call Dr. Quintanilla to receive clearance. Client states her depression has lessened with Rexulti and bupropion, and she would like increases in this. She restarted BuSpar/hydroxyzi ne at noon only and feels this has helped her anxiety as well. Will restart these. 12/02/2023 Other RSV AND PREVNAR [address] GIVEN AT [facility] IN 1-2 WEEKS. FLU AND TDAP WERE GIVEN TODAY. [place]/24/2023 [place] receiving gabapentin and tramadol for pain control. Has been educated to take hours apart from zolpidem to limit risk of respiratory depression, to take zolpidem only when needed for severe insomnia and lowest dose possible (ie 0.5 tablet when possible). Discussed sleep hygiene and caffeine intake with encouragement to limit electronic devices an hour before bed and to limit caffeine after 3:00pm. Exercise benefits for mood and health discussed. Psychoeducation regarding psychiatric illness provided. Client was educated about risks and benefits of medication, alternatives to medication, off label uses of medication, suicidal ideation with SSRIs, self-administration and compliance with medication along with how to safely store medication. Verbal informed consent obtained. Client agrees to return sooner if symptoms worsen or if suicidal or homicidal ideations occur. Client has the phone number to the 24-hour crisis line at [facility]. Questions addressed. Client verbalized understanding of all information and is agreeable to treatment plan. Client c/o anxiety and depressive symptoms ongoing and insomnia but when questioned insomnia is better and client getting nearly 6 hours of sleep now. Was getting 3 hours when took over care. She states having increased anxiety in evenings, when alone, worsened with time change. Has had wt gain, but she states she has not been good with healthy food options and does not think it is the Rexulti but rather eating too much bad food and not enough exercise. Will continue to monitor. Buspar stopped and sertraline started to tx anxiety/PTSD (client keeps mixing up bupropion and buspirone due to how similar names are anyhow and this could be dangerous). She feels her anxiety is out of control still. She wants to take something in the afternoon. Discussed to take the sertraline in the afternoon. Hopeful this will pair well with the Wellbutrin and Rexulti for tx of PTSD. 03/22/2024 [place] issues noted. Discussed sleep hygiene and caffeine intake with encouragement to limit electronic devices an hour before bed and to limit caffeine after 3:00pm. Exercise benefits for mood and health discussed. Psychoeducation regarding psychiatric illness provided. Client was educated about risks and benefits of medication, alternatives to medication, off label uses of medication, suicidal ideation with SSRIs, self-administration and compliance with medication along with how to safely store medication. Verbal informed consent obtained. Client agrees to return sooner if symptoms worsen or if suicidal or homicidal ideations occur. Client has the phone number to the 24-hour crisis line at [facility]. Questions addressed. Client verbalized understanding of all information and is agreeable to treatment plan. Client states she felt she was improved with her treatment plan but fell off. Wants to restart and reassess. 04/20/2024 [place] issues noted. Discussed sleep hygiene and caffeine intake with encouragement to limit electronic devices an hour before bed and to limit caffeine after 3:00pm. Exercise benefits for mood and health discussed. Psychoeducation regarding psychiatric illness provided. Client was educated about risks and benefits of medication, alternatives to medication, off label uses of medication, suicidal ideation with SSRIs, self-administration and compliance with medication along with how to safely store medication. Verbal informed consent obtained. Client agrees to return sooner if symptoms worsen or if suicidal or homicidal ideations occur. Client has the phone number to the 24-hour crisis line at [facility]. Questions addressed. Client verbalized understanding of all information and is agreeable to treatment plan. Client struggling with severe depression and anxiety excerbated by lack of sleep. Sleep difficult to balance given hx of medical comorbities (including sleep apnea). She has failed multiple sleep aides: Remeron, trazodone, doxepin, ambien. Her sleep cycle is not being extended by Ambien immediate release and this is why Ambien extended release in its lowest dose was written for in generic form. Client does not feel her depression has been assisted by Rexulti or bupropion and wants these medications discontinued and replaced by something else . Discussed raising dose of sertraline to 100 mg and adding aripiprazole to treatment plan in place of Rexulti. She is agreeable after risk versus benefit discussed. Buspar readded to tx plan and hydroxzyine dose increased to tx her severe anxiety. Client warned about anticholinergic side effects and what to look for. Client given crisis line number and asked to call if needed. 05/06/2024 [place] issues noted. Discussed sleep hygiene and caffeine intake with encouragement to limit electronic devices an hour before bed and to limit caffeine after 3:00pm. Exercise benefits for mood and health discussed. Psychoeducation regarding psychiatric illness provided. Client was educated about risks and benefits of medication, alternatives to medication, off label uses of medication, suicidal ideation with SSRIs, self-administration and compliance with medication along with how to safely store medication. Verbal informed consent obtained. Client agrees to return sooner if symptoms worsen or if suicidal or homicidal ideations occur. Client has the phone number to the 24-hour crisis line at [facility]. Questions addressed. Client verbalized understanding of all information and is agreeable to treatment plan. 06/16/2024 [place] issues noted. Discussed sleep hygiene and caffeine intake with encouragement to limit electronic devices an hour before bed and to limit caffeine after 3:00pm. Exercise benefits for mood and health discussed. Psychoeducation regarding psychiatric illness provided. Client was educated about risks and benefits of medication, alternatives to medication, off label uses of medication, suicidal ideation with SSRIs, self-administration and compliance with medication along with how to safely store medication. Verbal informed consent obtained. Client agrees to return sooner if symptoms worsen or if suicidal or homicidal ideations occur. Client has the phone number to the 24-hour crisis line at [facility]. Questions addressed. Client verbalized understanding of all information and is agreeable to treatment plan. Client maintain relative stability given her 1 year old dog was struck and killed by an automobile a week ago and she was tightly bonded to the dog. This was large loss in a series of emotional losses over the last few years. Client has reached a better level of mental stability in last month on combination of Abilify, Zoloft, Buspar, Hydroxyzine and use of extended release Ambien for sleep. She has had very disrupted sleep impacted by her depression and anxiety. She has a lot of medical comorbidities and every effort has been made to utilize other medications for sleep over the years with no result and her mental health has seemed to continue to decline. Trazodone, doxepin, Seroquel, mirtazpine, Ramelteon, melatonin, clonodine, visteril dosed at night, immediate release Ambien have all failed. She does wear a CPAP and sees sleep medicine and nursing has updated their office on trials of these sleep medications. She found a moderate level of relief with 6.25 mg of ER Zolipidem but was finally able to sleep throughout the night with 12.5 mg of Zolipidem and has been sleeping through the night. Her anxiety level is notably down comparative to recent past despite this intense loss. She states she does not want to change her medicine treatment plan but wants to go through the grieving process for her dog and then reassess. She has the crisis line and is aware therapy services are available. Plan Of Treatment Future Test Test Name Order Date Mammogram Breast - Bilateral Screening 0 11/03/2023 Next Appt Details Provider Name:Juancarlos hager, 07/12/2024 10:20:00 AM, [address], [place], [address], Insurance Providers Payer Name Payer Address Payer Phone Subscriber Number Group Number Insured Name Patient Relationship to Insured Coverage Start Date Coverage End Date [facility] Medicare Assure [address] [address] [place] [address] [phone] [id number] Alma Muhammad Self - patient is the insured 2 MEDICAID [address] [place] [address] [id number] Alma Muhammad Self - patient is the insured 0 Medical (General) History Medical History History ICD Code Pre-diabetes COPD Depression Vitamin D Deficiency Sleep apnea Fibromyalgia Surgical History Surgery Date(Month/Year) tubal 1989 Foot surgery 2019 cataract surgery 02/2020 cataract surgery 03/2020 Cholecystectomy 05/2021 wart removal 10/2023 Hospitalization History Reason Date(Month/[facility]) [facility]- [place] [id number]
--- OUTSIDE RECORDS SUMMARY | 2024-07-02 01:34 | XMS_ITS ---
Author Organization [facility] Address [address] [place] [address] Care Team Providers Care Rear Admiral Name Role Phone Alen Gay Primary Care Provider Juancarlos Goyal [phone] REASON FOR VISIT 2 Week Psych Med Check Social History Sex Assigned At : Social History Observation Description Sex Assigned At Female Encounters Encounter Location Date Provider Diagnosis [address] [address] 05/19/2024 Juancarlos Goyal Plan Of Treatment Next Appt Details Provider Name:Juancarlos Jamison , 07/12/2024 10:20:00 AM, [address] [place] [address], [id number], Progress Notes * TATIANA AlmaDOB:1960 ( 63 yo F)Acc No.[id number]:05/19/2024 UNLOCKED PROGRESS NOTE Patient: Alma CALDWELL Provider: Bharati Goyal DNP, PMHNP-BC :1960 A ge:63 Y S ex:Female Date:05/19/2024 [address] Pcp:Alen Gay Subjective: * Chief Complaints: * 1 . 2 Week Psych Med Check. * Medical History: Objective: * Vitals: Assessment: Plan: * Treatment: * * Electronic signature of Omar Goyal APRN, [id number] on 07/02/2024 at 01:34 AM CDT Sign off status: Pending * Provider: Bharati Goyal DNP, PMHNP-BC Date: 0 05/19/2024 Generated for Jero avalos/Aminata/Lissy on: 0 07/02/2024 01:34 AM CDT
--- OUTSIDE RECORDS SUMMARY | 2024-07-02 01:35 | XMS_ITS | CONTINUITY OF CARE DOCUMENT ---
Author Name reggienancywilliam Address Unknown Organization [facility] Address [address] [place] [address] Phone [phone] Care Team Providers Care Bicycle Rental Clerk Name Role Phone Casey Harrington MD Unavailable [phone] Jose E Vilchis MD Unavailable [phone] Jose E Vilchis MD Unavailable [phone] INSURANCE PROVIDERS Payer name Policy type / Coverage type [place] red republican [employer] Medicaid 3 [id number] [facility] MEDICARE COMPLETE DIRECT PFFS [employer] [id number]
--- OUTSIDE RECORDS SUMMARY | 2024-07-02 01:35 | XMS_ITS | Clinical Summary ---
Author Organization [facility] Address [address] [place] [address] Care Team Providers Care Reflesher Name Role Phone Unavailable Primary Care Provider Unavailabl e Source Comments [facility],non-owned Affiliates and Associated Physician Practices is amultiple site organization consisting of ambulatory clinics and hospital sitesin [place], [place], [place] and [place]. This disclosure is being madepursuant to the Care Everywhere program and may not contain all information available regarding this patient. Last updated 17.[facility] Allergies No known active allergies Medications * Be aware that medications may not be up to date on this document. Alwaysverify current medications with the patient. albuterol (PROVENTIL;VENT MOISES) (2.5 MG/3ML) 0.083% nebulizer solution Inhale 2.5 mg by mouth 3 times daily Active albuterol HFA (PROVENTIL;VENT MOISES;PROAIR) 108 (90 Base) MCG/ACT inhaler Inhale 2 puffs by mouth every 4 hours Active PROAIR HFA 108 (90 Base) MCG/ACT inhaler 06/15/2020 Act pedrito celecoxib (CELEBREX) 100 MG capsule Take 100 mg by mouth 2 times daily 06/01/2020 Active cetirizine (ZYRTEC) 10 MG tablet Take 10 mg by mouth once daily 12/09/2019 Active ergocalciferol (DRISDOL) 1.25 MG (76924 UT) capsule Take 50,000 Units by mouth every 7 days Active alendronate (FOSAMAX) 70 MG tablet Take 70 mg by mouth every 7 days before meal Active hydrOXYzine hcl (ATARAX) 25 MG tablet 06/14/2020 Active meloxicam (MOBIC) 15 MG tablet 06/15/2020 Active montelukast (SINGULAIR) 10 MG tablet Take 10 mg by mouth once daily Active Lyman-3 Fatty Acids (FISH OIL) 1000 MG capsule Take 1,000 mg by mouth once daily 12/09/2019 Active prazosin (MINIPRESS) 1 MG capsule Take 1 mg by mouth at bedtime 07/13/2019 Active pregabalin (LYRICA) 150 MG capsule Take 150 mg by mouth 2 times daily 06/10/2020 Active rOPINIRole (REQUIP) 1 MG tablet 06/15/2020 Active traZODone (DESYREL) 50 MG tablet Take 50 mg by mouth nightly as needed 02/14/2020 Active tiZANidine (ZANAFLEX) 4 MG tablet Take 4 mg by mouth 3 times daily as needed 05/16/2020 Active Active Problems Problem Noted Date Diagnosed Date Sensorineural hearing loss (SNHL) of both ears 0 06/29/2020 Assessment & Plan (06/29/2020 2:15 PM CDT): Audiogram revealed a moderately severe sloping to mild functional hearing loss bilaterally; with speech store clerk cashier thresholds not in agreement with pure tone average. Disucssed results with the patient; recommend she repeats audiogram before to confirm results before scheduling a hearing aid evaluation. Patient stated she would call to schedule this appointment. It should be conducted with Dr. Oliveros at next visit. Non-seasonal allergic rhinitis 06/29/2020 Assessment & Plan (06/29/2020 2:16 PM CDT): Recommend patient start on Flonase daily and a sinus rinse in addition to her zyrtec. Educated patient proper nasal spray administration as well as how to perform saline irrigation. Educated patient on the importance of compliance. Follow up in 2 months if symptoms persist. Family History Medical History Relation Name Comments Cancer - Other Brother Alcohol abuse Father Alcohol abuse Maternal Grandmother Arthritis - Rheumatoid Maternal Grandmother Asthma Maternal Grandmother Cancer - Other Maternal Grandmother Diabetes - Type 2 Maternal Grandmother Diabetes - Type 2 Mother Alcohol abuse Paternal Grandfather Diabetes - Type 2 Sister Hypertension Sister Relation Name Status Comments Brother Father Maternal Grandmother Mother Paternal Grandfather Sister Social History Tobacco Use Types Packs/Day Years Used Date Smoking Tobacco: Former Cigarettes 1 30 Smokeless Tobacco: Never Alcohol Use Standard Drinks/Week Comments Never 0 (1 standard drink = 0.6 oz pur e alcohol) Comments Unknown Sex and Gender Information Value Date Recorded Sex Assigned at Not on file Legal Sex Female 11:01 AM CDT Gender Identity Not on file Sexual Orientation Not on file Last Filed Vital Signs Vital Sign Reading Time Taken Comments Blood Pressure 129/76 06/29/2020 9:31 AM CDT Pulse 74 06/29/2020 9:31 AM CDT Temperature - - Respiratory Rate - - Oxygen Saturation - - Inhaled Oxygen Concentration - - Weight 117.9 kg (260 lb) 06/29/2020 9:31 AM CDT Height 149.9 cm (4' 11 ) 06/29/2020 9:31 AM CDT Body Mass Index 52.51 06/29/2020 9:31 AM CDT Plan of Treatment Health Maintenance Due Date Last Done Comments BONE DENSITY TESTING 1960 COLOGUARD (AGES 45-75) - COL ON CA SCREENING 1960 COLON MONITORING 1960 COLONOSCOPY - COLON CA SCREENING 1960 CT COLONOGRAPHY - COLON CA SCREENING 1960 Colorectal Cancer Screening 1960 FIT - COLON CA SCREENING 1960 FLEX SIG - COLON CA SCREENING 1960 LIPID TESTING 1960 MAMMOGRAM 1960 HIV SCREENING 1973 HEPATITIS C SCREENING 11/08/1976 DTAP/TDAP/TD VACCINES (1 - Tdap) 1977 PNEUMOCOCCAL VACCINE 50+ (1 of 1 - PCV) 2008 ZOSTER VACCINE (1 of 2) 2008 SCREENING FOR DIABETES 06/29/2020 COVID-19 VACCINE ( - 2023-2 5 season) 2023 DEPRESSION SCREENING 02/11/2024 INFLUENZA VACCINE (Season Ended) 2024 Respiratory Syncytial Virus (RSV) Vaccine Pt: or over 60 yrs (1 - 1-dose 75+ series) 2033 HEPATITIS B VACCINE Aged Out No longe r eligible based on patient's age to complete this topic HIB VACCINE Aged Out No longer eligi ble based on patient's age to complete this topic HPV VACCINE Aged Out No longer eligi ble based on patient's age to complete this topic MENINGOCOCCAL (Group B) VACC INE SHARED DECISION-MAKING Aged Out No longer eligibl e based on patient's age to complete this topic MENINGOCOCCAL GROUPS A/C/Y/W VACCINE Aged Out No longer eligible b ased on patient's age to complete this topic Insurance MEDICAID - OUT OF STATE [facility] MANAGED MEDICARE ADV
--- OUTSIDE RECORDS SUMMARY | 2024-07-02 01:35 | XMS_ITS | Data Portability ---
Author Organization [facility] IP Address [address] [place] [address] Care Team Providers Care Wind Energy Engineer Name Role Phone MORGAN GASPAR Primary Care Provider [phone] Assessment No assessment recorded. Plan of Treatment Reminders Order Date Submit Date Provider Last Modified By Organization Details Last Modified Time Details Appointments ANY 15 2024 03:00P M Von Jacobo MD Not available Not available Not available Lab None recorded. Referral None recorded. Procedures excision, skin, subcutane ous lesion (PROC) - operative permit should read excision multiple skin lesions of face and lesion left thigh 2024 025 [facility] (Surgery Sched), [address] [place], [address], 05/07/2024 11:51:10 Surgeries None recorded. Imaging None recorded. Medication Orders None recorded. Patient TargetsNo targets recorded. Patient InstructionsNo instructions recorded. Reason for Referral None Reported. Results Created Date Observation Date Name Description Value Unit Range Abnormal Flag Note LastModifiedBy Organization Detail LastModifiedTime Result Notes None recorded. Medical Equipment None Reported. Allergies No known drug allergies Medications Name Sig Start Date Stop Date Status Note LastModified by Organization Details LastModified Time cyclobenzaprine 10 mg tablet active Not Available Not Available No t Available amoxicillin 500 mg capsule active Not Available Not Available Not Available metformin 500 mg tablet active Not Available Not Available Not Available promethazine-DM 6.25 mg-15 mg/5 mL oral syrup active Not Available Not Available N ot Available fluticasone 250 mcg-salmeterol 50 mcg/dose blistr powdr for inhalation active Not Available Not Available N ot Available acetaminophen 325 mg tablet active Not Available Not Available No t Available gabapentin 600 mg tablet active Not Available Not Available Not Available atorvastatin 20 mg tablet active Not Available Not Available Not Available cetirizine 10 mg tablet active Not Available Not Available Not Available atorvastatin 10 mg tablet active Not Available Not Available Not Available ibuprofen 800 mg tablet active Not Available Not Available Not Available doxepin 25 mg capsule active Not Available Not Available Not Available hydrocodone 5 mg-acetaminophen 325 mg tablet active Not Available Not Availabl e Not Available meloxicam 15 mg tablet active Not Available Not Available Not Available prednisone 20 mg tablet active Not Available Not Available Not Available alendronate 70 mg tablet active Not Available Not Available Not Available hydroxyzine pamoate 50 mg capsule active Not Available Not Availabl e Not Available hydroxyzine HCl 50 mg tablet active Not Available Not Available No t Available sulfamethoxazole 800 mg-trimethoprim 160 mg tablet active Not Available Not Availabl e Not Available tramadol 50 mg tablet active Not Available Not Available Not Available oxycodone-acetamino phen 5 mg-325 mg tablet active Not Available Not Available Not Available amitriptyline 25 mg tablet active Not Available Not Available Not Available methocarbamol 750 mg tablet active Not Available Not Available No t Available oxycodone-acetamino phen 10 mg-325 mg tablet active Not Available Not Available Not Available ropinirole 0.25 mg tablet active Not Available Not Available Not Available benzonatate 100 mg capsule active Not Available Not Available Not Available ropinirole 2 mg tablet active Not Available Not Available Not Available cephalexin 500 mg capsule active Not Available Not Available Not Available pantoprazole 40 mg tablet,delayed release active Not Available Not Available Not Available buspirone 10 mg tablet active Not Available Not Available Not Available prednisone 50 mg tablet active Not Available Not Available Not Available gabapentin 300 mg capsule active Not Available Not Available Not Available diclofenac sodium 75 mg tablet,delayed release active Not Available Not Available Not Available montelukast 10 mg tablet active Not Available Not Available Not Available hydroxyzine HCl 25 mg tablet active Not Available Not Available No t Available zolpidem 5 mg tablet active Not Available Not Available Not Available mirtazapine 15 mg tablet active Not Available Not Available Not Available ergocalciferol (vitamin D2) 1,250 mcg (50,000 unit) capsule active Not Available Not Available Not Available levofloxacin 500 mg tablet active Not Available Not Available Not Available methylprednisolone 4 mg tablets in a dose pack active Not Available Not Available No t Available albuterol sulfate HFA 90 mcg/actuation aerosol inhaler active Not Available Not Availa ble Not Available ondansetron 4 mg disintegrating tablet active Not Available Not Available Not Available fluticasone propionate 50 mcg/actuation nasal spray,suspension active Not Available Not Avail able Not Available sertraline 50 mg tablet active Not Available Not Available Not Available amoxicillin 875 mg-potassium clavulanate 125 mg tablet active Not Available Not Available Not Available buspirone 15 mg tablet active Not Available Not Available Not Available enoxaparin 40 mg/0.4 mL subcutaneous syringe active Not Available Not Available Not Available bupropion HCl XL 300 mg 24 hr tablet, extended release active Not Available Not Available Not Available bupropion HCl XL 150 mg 24 hr tablet, extended release active Not Available Not Available Not Available erythromycin with ethanol 2 % topical solution active Not Available Not Available Not Available duloxetine 30 mg capsule,delayed release active Not Available Not Available Not Available duloxetine 60 mg capsule,delayed release active Not Available Not Available Not Available Boostrix Tdap 2.5 Lf unit-8 mcg-5 Lf/0.5 mL intramuscular syringe active Not Available Not Available Not Available tramadol ER 300 mg tablet,extended release 24 hr active Not Available Not Availabl e Not Available Breo Ellipta 100 mcg-25 mcg/dose powder for inhalation active Not Available Not Available N ot Available Rexulti 1 mg tablet active Not Availab le Not Available Not Available Rexulti 0.5 mg tablet active Not Available Not Available Not Available fluticasone 113 mcg-salmeterol 14 mcg/actuation breath activated powdr active Not Available Not Available Not Available Flucelvax Quad 60 mcg (15 mcg x 4)/0.5 mL intramuscular susp active Not Available Not Silvia ilable Not Available Trulicity 3 mg/0.5 mL subcutaneous pen injector active Not Available Not Available Not Available Mounjaro 5 mg/0.5 mL subcutaneous pen injector active Not Available Not Available Not Available Mounjaro 2.5 mg/0.5 mL subcutaneous pen injector active Not Available Not Available Not Available Vitals Date Recorded Body height Respiratory rate Body mass index (BMI) Body weight Oxygen saturation Oxygen saturation in Arterial blood by Pulse oximetry Heart rate Systolic blood pressure Diastolic blood pressure Provider Name and Address Organization Details Last Updated DateTime 4 149.86 cm 18 /min 48.4 kg/m2 187216. 73 g 98 % 98 % 72 /min 117 mm[Hg] 65 mm[Hg] Vlad Williamson MA [place] - [facility] 4 10:15:47 Date Recorded Body height Heart rate Respiratory rate Body mass index (BMI) Body weight Systolic blood pressure Diastolic blood pressure Provider Name and Address Organization Details Last Updated DateTime 5 149.86 cm 84 /min 18 /min 47.7 kg/m2 312342. 52 g 163 mm[Hg] 87 mm[Hg] Vlad Williamson MA [facility] 5 16:25:06 Date Recorded Body height Respiratory rate Body mass index (BMI) Body weight Oxygen saturation Oxygen saturation in Arterial blood by Pulse oximetry Heart rate Systolic blood pressure Diastolic blood pressure Provider Name and Address Organization Details Last Updated DateTime 5 149.86 cm 18 /min 47.7 kg/m2 341143. 8 g 96 % 96 % 69 /min 133 mm[Hg] 77 mm[Hg] Vlad Williamson MA [facility] 5 11:13:12 Social History None recorded. Functional Status None recorded. Mental Status None recorded. Family History Nothing Reported. Medical History No medical history recorded. Gynecological HistoryNo gynecological history recorded. Obstetrics History GPAL:G 0 P 0 0 0 0 Past Encounters Encounter ID Performer Location Encounter Start Date Encounter Closed Date Diagnosis/Indication Diagnosis SNOMED-CT Code Diagnosis ICD10 Code Diagnosis Note [id number] Von Jacobo MD [facility] [address] [place] [address] 01/23/2024 10:00:07 01/23/2024 12:44:17 Skin lesion 80059969 L98.9 discussed with patient that the changes are very early or possibly even normal at this time. We will follow patient back up in 2 months and reassess her skin at that time. Discussed with patient if something change rapidly to make an appointmen t immediatel y and we will see her at that time [id number] Von Jacobo MD [facility] [address] [place] [address] 04/09/2024 16:08:55 04/09/2024 17:06:48 Change in skin lesion 929110529 L98.9 discussed excision of multiple facial lesions and left thigh lesion, patient would like to have this done under IV sedation with local anesthesia . Discussed the procedure, risks, complicati ons, alternativ es and likely outcomes including the be a scar and some of these areas after the excision process and she understand s this and would like to proceed [id number] Von Jacobo MD [facility] [address] [place] [address] 05/24/2024 10:58:39 05/24/2024 12:12:49 Postoperative care 819743527 Z48.89 sutures were removed without difficulty , discussed further wound care with patient layman's terms, we will see patient back in 3 months Health Concerns Section Related Observation LastModified by Organization Detai ls LastModified Time None Recorded Concern Status LastModified by Organization Details LastModified Time None Recorded Advance Directives Directive None Recorded Payers Encounter Date Sequence Insurance Name Policy Number Policy Hernandez Covered Member ID Hernandez Member ID Guarantor Name 01/23/2024 1 [facility] (MEDICARE REPLACEMENT/A DVANTAGE - HMO) [id number] Alma Muhammad [id number] Alma Muhammad 04/09/2024 1 [facility] (MEDICARE REPLACEMENT/A DVANTAGE - HMO) [id number] Alma Muhammad [id number] Alma Muhammad 04/09/2024 2 [place] [employer] Alma Muhammad [id number] Alma Muhammad 05/24/2024 1 [facility] (MEDICARE REPLACEMENT/A DVANTAGE - HMO) [id number] Alma Muhammad [id number] Alma Jb 05/24/2024 2 [place] [facility] Alma Muhammad [id number] Alma Jb Notes Date Note Type Note Provider Name and Address Organization Details Recorded Time 01/23/2024 text/html Patient is a 63-year-old female who has previous premalignant lesion excised from her lip as patient previously lived near [facility]. Patient admits to having a great deal of sun exposure. Patient concerned about an area of her lower lip as well as an area in the left cheek and forehead. Patient denies any fever chills or bleeding or discharge Von Jacobo MD [address] [place], [address], [facility] 01/23/2024 10:48:56 04/09/2024 text/html patient is a 63-year-old female who notes that the lip lesion as well as the forehead lesion have gotten bigger. Patient also notes she has more lesions in the periorbital region on both sides more on the right than the left. Patient has also noticed a enlarging pigmented lesion of the left thigh. Patient denies any history of skin cancer but says his brother had melanoma. Patient denies any fever chills or bleeding or discharge Von Jacobo MD [address] [place], [address], [facility] 04/09/2024 16:35:45 05/24/2024 text/html patient is follo w up of excision multiple lesions. 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 Patient appears to be satisfactory result is happy these lesions are gone. Von Jacobo MD [address], [place], [address], [facility] 05/24/2024 11:22:42 OBGyn Episode No OBEpisode recorded.
--- OUTSIDE RECORDS SUMMARY | 2024-07-02 01:35 | XMS_ITS | Clinical Summary ---
Author Organization [facility] Address [address] [place] [address] Phone Care Team Providers Care Photo Lab Technician Name Role Phone José Whatley APRN, MARK Primary Care Provide r Allergies No known active allergies Medications albuterol (PROVENTIL, VENTOLIN) (2.5 MG/3ML) 0.083% Nebulizer Soln 1 Vial by Nebulization route as needed. 9 Active albuterol 108 (90 Base) MCG/ACT Aerosol Solution take 1 Puff by inhalation every 4 hours as needed. Active fluticasone (FLONASE) 50 MCG/ACT Suspension 1 [place] by Nasal route daily. 9 Active alendronate (FOSAMAX) 70 MG Tablet Take 70 mg by mouth daily. 5 9 Active metFORMIN (GLUCOPHAGE) 500 MG Tablet Take 500 mg by mouth daily. 9 Active atorvastatin (LIPITOR) 10 MG Tablet Take 10 mg by mouth daily. 9 Active DULoxetine (CYMBALTA) [address] Particles Take 60 mg by mouth daily. 9 Active methocarbamol (ROBAXIN) 750 MG Tablet Take 750 mg by mouth 2 times daily as needed. 2 9 Active diclofenac (VOLTAREN) 75 MG Tablet Delayed Response Take 75 mg by mouth 2 times daily. 1 9 Active montelukast (SINGULAIR) 10 MG Tablet Take 10 mg by mouth daily. 9 Active ergocalciferol (VITAMIN D) 20662 UNIT Capsule Take 1 Cap by mouth once a week. 5 9 Active benzonatate (TESSALON) 100 MG Capsule Take 100 mg by mouth 3 times daily as needed. 0 9 Active gabapentin (NEURONTIN) 300 MG Capsule 1 CAPSULE EVERY MORNING, 1 CAPSULE MIDDAY, 2 CAPSULE AT BEDTIME 120 Cap 3 0 Active rOPINIRole (REQUIP) 0.25 MG Tablet TAKE 1 TABLET BY MOUTH EVERY NIGHT 30 Tab 3 0 Active Active Problems Problem Noted Date Diagnosed Date Numbness of both lower extremities 11/12/2018 Restless leg syndrome 11/12/2018 Chronic midline low back pain without sciatica 0 08/05/2018 Pain in both feet 08/05/2018 Sacroiliac joint dysfunction of both sides 08/04 Cervical radiculopathy 08/04/2018 Chronic right shoulder pain 08/04/2018 Social History Tobacco Use Types Packs/Day Years Used Date Smoking Tobacco: Never Assessed Comments Unknown Sex and Gender Information Value Date Recorded Sex Assigned at Not on file Legal Sex Female 3:03 PM CDT Gender Identity Not on file Sexual Orientation Not on file Last Filed Vital Signs Vital Sign Reading Time Taken Comments Blood Pressure 119/75 11/12/2018 10:44 AM CDT Pulse 75 11/12/2018 10:44 AM CDT Temperature 37 C (98.6 F) 11/12/2018 10:44 AM CDT Respiratory Rate - - Oxygen Saturation 98% 11/12/2018 10:44 AM CDT Inhaled Oxygen Concentration - - Weight 116.1 kg (256 lb) 09/28/2018 4:50 PM CDT Height - - Body Mass Index - - Plan of Treatment Health Maintenance Due Date Last Done Comments Hepatitis C Virus (HCV) Screening 1960 Colonoscopy 11/14/2003 Colorectal Cancer Screening 11/14/2003 Cologuard 2008 Immunochemical Fecal Occult Blood 2008 Pneumococcal Immunization (5 0+ years) (1 of 1 - PCV) 2008 Zoster Immunization (1 of 2) 2008 Influenza Immunization (#1) 2023 SARS-COV-2 Immunization ( season) 2023 02/22/2021, 06/16/2020, 05/20/2020 Respiratory Syncytial Virus (RSV) Immunization (Adult) (1 - 1-dose 75+ series) 2033 DTaP/Tdap/Td Immunization Discontinued 05/17/2018 TdaP Immunization Completed 05/17/2018 Hepatitis B Immunization Aged Out No longer eligible based on patient's age to complete this topic Meningococcal Immunization (ACWY) Aged Out No longer eligible based on patient's age to complete this topic Rotavirus Immunization Aged Out No lo nger eligible based on patient's age to complete this topic Insurance MEDICAID [employer] Care Teams Photo Lab Technician Relationship Specialty Start Date End Date José Whatley, EL[place], COMMISSIONED SALES ASSOCIATE [address] [place] [address] PCP - General Advanced Practice Nurse 06/19/18
--- OUTSIDE RECORDS SUMMARY | 2024-07-02 01:36 | XMS_ITS | Data Portability ---
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 We talked about treatment options today in detail we talked about weight loss today in detail and ways to do that. She is working with her primary care physician currently. At her request under sterile conditions I injected the patient's bilateral thumb CMC joints in the bilateral knee joints in the office. I injected the knee joints with 4 cc 0.5% bupivacaine and 20 mg of Kenalog each. I injected the bilateral thumb CMC joints with 2 cc of 0.5% bupivacaine and 10 mg of Kenalog each. The patient tolerated all 4 injections well. I will see her back as needed we can do this again in 3 months she is going to continue to work on weight loss to qualify for total knee arthroplasty she will call for any further problems difficulties or questions. Not available 03/23/2024 10:01:40 06/01/2024 06/01/2024 This note is dictated and transcribed by [employer]. Automatic Dispenser Mechanic variances may occur. Despite proofreading, typographical errors may occur. Occasional wrong-word or '[id number]' substitutions may have occurred due to the inherent limitations of voice recording. Read the chart carefully and recognize, using context, where substitutions have occurred. [email or web address] Not available 06/01/2024 17:00:12 06/22/2024 06/22/2024 The patient has severe primary osteoarthritis of the bilateral thumb CMC joints as well as the bilateral knee joints as described. Under sterile conditions I injected the patient's bilateral thumb CMC joints in the office with 2 cc of 0.5% bupivacaine and 10 mg of Kenalog each. I also injected the patient's bilateral knee joints in the office with 4 cc of 0.5% bupivacaine and 20 mg of Kenalog each. The patient tolerated all 4 injections well. She was wondering about other treatment options she takes diclofenac 75 mg twice daily I stated that we could try a course of prednisone she would like to do this she will hold on the diclofenac while she is on the prednisone. See her back as needed we can do this again in 3 months if necessary. She voiced understanding and agreed with the above plan we talked about surgical options previously as well and again today. Her BMI is little high for total knee arthroplasty. She would need to work on weight loss. She voiced understanding agrees with the above plan she will call for any further problems difficulties or questions. Previous x-rays were reviewed today in detail with the patient. Not available 06/22/2024 11:18:12 Plan of Treatment Reminders Order Date Submit Date Provider Last Modified By Organization Details Last Modified Time Details Appointments Establi shed Patient 15 2024 04:00P M Greyson Sullivan DPM Not available Not available Not available Any 5 2024 09:30A M REINA Martínez Not available Not available Not available Any 30 2025 01:00P M Braxton Quintanilla MD Not available Not available Not available Lab None recorde d. Referral physica l therapi st referra l - Please call patient to harriett edward appoint ment. Thank you. 2024 025 [facility] [place], [address] [place] [address], [place], [address], 05/04/2024 18:35:22 Procedures colonos copy darius avalos (PROC) - Dr Briggs will be doing EGD on patient this friday, can this colonos copy be done on the same day? 2024 025 [email or web address] [facility], [address], [address], [place], [address], 06/29/2024 16:02:38 injecti on/aspi ration joint/b ursa (PROC) 2024 025 [email or web address] In-Office Order, Internal Use Only DO Not Attach Compendium DO Not Attach Compendium, Do Not Delete/merge, [id number] 06/22/2024 10:24:16 injecti on/aspi ration joint/b ursa (PROC) 2024 025 [email or web address] In-Office Order, Internal Use Only DO Not Attach Compendium DO Not Attach Compendium, Do Not Delete/merge, 06/22/2024 10:24:16 injecti on/aspi ration joint/b ursa (PROC) 2024 025 [email or web address] In-Office Order, Internal Use Only DO Not Attach Compendium DO Not Attach Compendium, Do Not Delete/merge, 03/23/2024 09:42:50 injecti on/aspi ration joint/b ursa (PROC) 2024 025 [email or web address] In-Office Order, Internal Use Only DO Not Attach Compendium DO Not Attach Compendium, Do Not Delete/merge, 03/23/2024 09:42:50 Surgeries None recorde d. Imaging None recorde d. Medication Orders gabapen tin 600 mg tablet 2024 025 JEFF SD [facility][id number], [address], [place], [place], [id number], 06/29/2024 15:03:09 bupivac litzy HCl 0.5 % (5 mg/mL) injecti on solutio n 2024 025 [email or web address] [facility] #84723, [address], [place], [place], [id number], 06/22/2024 11:30:08 Kenalog 10 mg/mL suspens ion for injecti on [address] [place] [address] [facility] #22960, [address], [place], [place], [id number], 06/22/2024 11:30:08 bupivac ltizy HCl 0.5 % (5 mg/mL) injecti on solutio n [address] [facility] #33058, [address] , [place], [place], [id number], 06/22/2024 11:30:08 Kenalog 10 mg/mL suspens ion for injecti on [address] [place] [address] [facility] #55451, [address] [place], [place], [id number], 06/22/2024 11:30:08 prednis one 10 mg tablets in a dose pack [address] [place] [address] [facility] #58007, [address] , [place], [place], [id number], 06/29/2024 14:23:11 Medrol (Yannick) 4 mg tablets in a dose pack [address] [place] [address] [facility] #76458, [address] [place], [place], [id number], 06/29/2024 14:20:30 Medrol (Yannick) 4 mg tablets in a dose pack [address] [place] [address] [facility] #60493, [address] [place], [place], [id number], 06/29/2024 14:20:30 meloxic am 15 mg tablet [facility]24 [facility], [address], [place], [place], [id number], 04/01/2024 12:26:07 bupivac litzy HCl 0.5 % (5 mg/mL) injecti on solutio n [address] [facility] #01652, [address], [place], [place], [id number], 03/23/2024 10:02:35 Kenalog 10 mg/mL suspens ion for injecti on [address] [facility]83928, [address], [id number], 03/23/2024 10:02:35 bupivac litzy HCl 0.5 % (5 mg/mL) injecti on solutio n [address] [facility] #10336, [address], [id number], 03/23/2024 10:02:35 Kenalog 10 mg/mL suspens ion for injecti on [address] [facility] #74128, [address], [place], [place], [id number], 03/23/2024 10:02:35 Patient TargetsNo targets recorded. Patient InstructionsNo instructions recorded. Reason for Referral Physical Therapist Referral for Cervical radiculopathy Please call patient to schedule an appointment. Thank you. Referring Physician: Morgan Vilchis, Internal Medicine, Encounter Date: 04/01/2024 Results Created Date Observation Date Name Description Value Unit Range Abnormal Flag Note LastModifiedBy Organization Detail LastModifiedTime 02/24/19 25 11/22/2019 colon robert lujan (PROC ) No observ ation record ed. BARCODE Not Available 2024 18:34:07 03/09/19 25 03/09/2024 scremilena lujan breas t radha, bilat [facility] [address] [place] [address] Patien t Name: ELODIA SIMPSON Access ion #: [id number] Sex: F : 1960 3 Dictat ed By: Yolette Dickey Attend ing Physic ann: CEM VILCHIS ER Orderi ng Physic ann: CEM VILCHIS ER Exam Date: 2024 13:08 PM Exam Name: MG SCRN BREAST RADHA BILAT Admitt ing Diagno sis(es ): PROCED URE: SCREEN ING MAMMOG ANNMARIE WITH TOMOSY NTHESI S REASON FOR EXAM: SCREEN ING MAMMOG ANNMARIE COMPAR BRYANT: MG SCRN BREAST RADHA BILAT on DOS: 3, MG SCRN BREAST RADHA BILAT 3D on DOS: 2, SCREEN ING BREAST RADHA, BILAT 3D on DOS: 0, SCREEN ING BREAST RADHA, BILAT 3D on DOS: 06/11/18 TECHNI QUE: Bilate ral CC and MLO views obtain ed. Images were obtain ed using a Digita l Tomosy nthesi s Unit. Standa rd 2D and 3D Tomosy nthesi s images were review ed. This examin ation was analyz ed using Lunit Insigh t DBT/MM G, an AI softwa re develo ped to enhanc e the effect ivenes s of breast cancer screen ing with mammog julián. FINDIN GS: BREAST COMPOS ITION: B - There are scatte red areas of fibrog landul ar densit y. In the right breast , no asymme trical parenc hymal patter n, kristopher ectura l distor tion, pleomo rphic microc alcifi cation s or masses . In the left breast , no asymme trical parenc hymal patter n, kristopher ectura l distor tion, pleomo rphic microc alcifi cation s or masses . IMPRES LISA: No findin gs of malign samaria. RECOMM ENDATI ON: Recomm end annual mammog annmarie. Page 1 [facility] [address] [facility] [place] [address] Patien t Name: ELODIA SIMPSON ion #: [id number] Sex: F : 1960 3 Dictat ed By: Yolette Dickey Attend ing Physic ann: HUBERT ALAN Orderi ng Physic ann: CEM VILCHIS ER Exam Date: 2024 13:08 PM Exam Name: MG SCRN BREAST RADHA BILAT Admitt ing Diagno sis(es ): ASSESS MENT: BIRADS : 1 - Negati ve Electr onical ly Signed by: Yolette Dickey at 2024 13:53: 50 PM Page 2 [email or web address] [facility] (Imaging) [address] [place], [address], 03/15/2024 11:57:57 03/22/19 25 03/18/2024 CT, cervi loan spine , w/o contr ast No observ ation record ed. BARCODE Not Available 2024 18:08:41 05/20/19 25 11/22/2019 colon oscop y scree tai (PROC ) No observ ation record ed. BARCODE Not Available 2024 14:06:28 06/30/19 25 06/29/2024 MAMMO , scree tai, digit al, bilat eral No observ ation record ed. [email or web address] Not Available 2024 12:23:16 Result Notes None recorded. Problems Name Problem SNOMED Code Status Onset Date Resolution Date Notes Provider Name and Address Organization Details Recorded Time Trigger finger of right hand 58686661370 176357 Completed 202009/27/2021 JOSS Junior, [place] - [facility] [place] [employer] [facility] 3 14:37:00 Active or passive immunizat ion Completed 202109/27/2021 Not Available [employer] 3 20:38:40 Computed tomograph y result abnormal 333694092 Completed 202109/27/2021 Not Available [employer] 3 20:38:40 Chronic obstructi ve pulmonary disease 33344613 Active 2020 Not Available [employer] 3 20:38:41 Pain in both feet 32909721342 156785 Completed 202109/27/2021 Braxton Quintanilla MD [address], [place], [address] , [employer] 4 10:29:02 Acute sinusitis 99135100 Completed 202109/27/2021 Braxton Quintanilla MD [address], [place], [address] , [employer] 4 12:40:21 MRI scan abnormal 151939040 Completed 202109/27/2021 Not Available [employer] 3 20:38:41 Acute exacerbat ion of chronic obstructi ve pulmonary disease 768317024 Completed 202109/27/2021 Not Available [employer] 3 20:38:41 Fibromyal anuj 292178294 Active 2021 Not Available [employer] 3 20:38:41 Gastroeso phageal reflux disease 647093933 Active 2021 Not Available [employer] 3 20:38:42 Carpal tunnel syndrome of left wrist 62732893660 9102 Active 2021 Not Available [employer] 3 20:38:42 Pain in right hand 40095971429 9109 Completed 202109/27/2021 Braxton Quintanilla MD [address], [place], [address] , [employer] 3 15:01:45 Restless legs 94652615 Active 2021 Not Available [employer] 3 20:38:42 Depressiv e disorder 44744148 Active 2020 Not Available [employer] 3 20:38:42 Osteoarth rosis of the carpometa carpal joint of the thumb 71586107 Completed 202109/27/2021 Not Available [employer] 3 20:38:42 Neuropath y 857539852 Active 2020 Not Available [employer] 3 20:38:43 Pain of right knee joint 12977547170 4100 Completed 202101/01/2022 Braxton Quintanilla MD [address] [employer], [address], [place], [address] , [employer] 3 13:44:43 Pain of right knee joint 67094772374 4100 Completed 202109/27/2021 Braxton Quintanilla MD [address], [place], [address] , [employer] 3 13:44:43 Anxiety 51569656 Active 2020 Not Available [employer] 3 20:38:43 Swollen abdomen 64686841 Completed 202109/27/2021 Not Available [employer] 3 20:38:43 Intermitt ent claudicat ion 26093503 Active 2020 Not Available [facility] 3 20:38:44 Osteoporo sis 30999930 Active 2021 Not Available [employer] 3 20:38:44 Prediabet es 752015313 Active 2020 Not Available [employer] 3 20:38:44 Postmenop ausal state 95189956 Completed 202109/27/2021 Not Available [employer] 3 20:38:44 Smoker 57515896 Active 2020 Not Available [employer] 3 20:38:44 Obstructi ve sleep apnea syndrome 70958741 Active 2020 Not Available [employer] 3 20:38:44 Hiatal hernia 87287713 Active 2021 Not Available [facility] 3 20:38:45 Administr ation of influenza vaccine Completed 202109/27/2021 Not Available [facility] 3 20:38:45 Bilateral osteoarth ritis of knees 42855788737 9107 Active 2022 Dinah Winston, RMA null, [facility] 3 09:20:10 Trigger finger of right hand 79786809419 434662 Active 2022 Maximo Perez RMA null, [facility] 3 14:37:00 Hyperlipi demia 76933108 Active 2022 Mariza Uriostegui LPN null, [facility] 3 11:10:37 Hearing loss 09922778 Active 2023 Mariza Uriostegui LPN null, [facility] 4 15:05:54 Obesity 555600934 Active 2023 Alicia Salazar null, [facility] 4 14:29:34 Localized , primary osteoarth ritis of the ankle and/or foot 200366843 Active 2023 Greyson Sullivan DPM [address], [place], [address] , [facility] 4 16:26:50 Congenita l bilateral pes planus 82128749264 562709 Active 2023 Greyson Sullivan DPM [address], [place], [address] , [facility] 4 16:28:03 Primary arthrosis of first carpometa carpal joints, bilateral 619355755 Active 2023 REINA Martínez [address], [place], [address] , [facility] 4 11:16:54 Plantar wart of right foot 03952530111 719895 Active 2023 Greyson Sullivan DPM [address], [place], [address] , [facility] 4 14:24:43 Plantar wart of left foot 46713281571 286123 Active 2023 Greyson Sullivan DPM [address], [place], [address] , [facility] 4 14:24:43 Vitamin D deficienc y 59870662 Active 2024 Mariza Uriostegui BIN FILLER null, [place] [facility] 5 09:45:16 Pain of bilateral knee joints 74566656086 4104 Active 2024 Chrissie Resendiz DIRECT SUPPORT STAFF null, [place] - [facility] 5 09:38:37 Pain of bilateral hands 19532802221 502570 Active 2024 Chrissie Resendiz DIRECT SUPPORT STAFF null, [place] [facility] 5 09:39:01 Neck pain 01303191 Active 2024 Morgan Vilchis MD [address], [place], [address] , [facility] - [facility] 5 12:22:24 Cervical radiculop athy 07091126 Active 2024 Morgan Vilchis MD [address], [place], [address] , [facility] 5 12:22:49 Tendiniti s of right posterior tibial tendon 55607091581 9102 Active 2024 Greyson Sullivan DPM [address], [place], [address] , [facility] - [facility] 5 16:59:53 Foot callus 746495343 Active 2024 Greyson Sullivan DPM [address], [place], [address] , [facility] 5 17:03:58 Tendiniti s of left posterior tibial tendon 28130792681 9100 Active 2024 Greyson Sullivan DPM [address], [place], [address] , [facility] 5 17:05:01 Chronic low back pain 765525737 Active 2024 Ayleen Rogel null, [facility] [facility] 5 14:26:46 Gastritis 4883844 Active 2024 Ayleen Stryfrannieler null, [facility] 5 14:26:46 Fatigue 25145098 Active 2024 Ayleen Stryffeler null, [facility] 5 14:26:46 Insomnia 999059222 Active 2024 Ayleeneddie Rogel null, [facility] 5 14:26:46 Osteoarth ritis 208695698 Active 2024 Ayleen Strzaida null, [facility] 5 14:26:46 Heart murmur 38196221 Active 2024 Ayleen Strzaida null, [facility] 14:26:46 Notes:Medical History: Depre ssion/Anxiety/PTSD Bilateral hearing loss Rhinitis Nicotine dependence Mild ACO Obesity with severe OSAHS, AHI = 40, 01/26/22, on CPAP c/o IVRC Hypertension with LVH Prediabetes Hiatal hernia with GERSON RLS Vit D deficiency Osteoporosis Osteoarthritis Left CTS Fibromyalgia Procedure History: Tubal 1989 Left foot surgery 2019 Bilateral cataract extraction with IOL 2020 Cholecystectomy 2021 Problem Notes None recorded. Procedures Surgical History Date Name Laterality Status Provider Name and Address Organization Details Recorded Time 06/02/19 25 Joint Injection-Podiatry completed Greyson Sullivan DPM [address], [place], [address], [facility] 06/01/2024 17:03:46 06/02/19 25 Callus Debridement 2-4 completed Greyson Sullivan DPM [address], [place], [address], [employer] [facility] [employer] [facility] 06/01/2024 17:03:53 12/23/19 24 Joint Injection-Podiatry completed Greyson Sullivan DPM [address], [place], [address], [facility] [employer] [facility] [employer] [facility] [employer] 12/24/2023 17:08:26 12/09/19 24 Wound Care-Podiatry completed Greyson Sullivan DPM [address], [place], [address], [facility] [employer] [facility] [employer] [facility] [employer] 12/11/2023 17:44:38 11/25/19 24 Joint Injection-Podiatry completed Greyson Sullivan DPM [address], [place], [address], [facility] [employer] [facility] [employer] [facility] [employer] 11/26/2023 10:35:56 11/18/19 24 Wound Care-Podiatry completed Greyson Sullivan DPM [address], [place], [address], [facility] [employer] [facility] [employer] [facility] [employer] 11/18/2023 17:18:34 10/17/19 24 Foot Surgery completed Chrissie Resendiz CNA [employer] [facility] [employer] [facility] [employer] 11/04/2023 10:54:03 07/15/19 24 Joint Injection-Podiatry completed Greyson Sullivan DPM [address], [place], [address], [facility] [employer] [facility] [employer] 11/26/2023 11:00:55 06/02/19 24 Ortho - Cortisone Injection completed Janis Foss NP [address], [place], [address], [facility] [employer] [facility] [facility] [employer] 06/02/2023 12:01:38 05/22/19 22 Cholecystectomy completed Not Available [facility] 04/10/2022 20:38:17 Eye Surgery completed Not Available [facility] 04/10/2022 20:38:17 cholecystectomy completed Alicia Salazar [employer] [employer] [facility] [employer] 07/15/2023 14:32:17 Imaging Results Imaging Date Name Status LastModified by Organ [facility] Details LastModified Time 11/22/2019 colonoscopy screening (PROC) completed BARCODE Information not available 02/25/2024 18:34:07 03/09/2024 screening breast radha, bilat completed [facility] (Imaging) [address] [facility], [place], [address], 03/15/2024 11:57:57 03/18/2024 CT, cervical spine, w/o contrast completed BARCODE Information not available 03/22/2024 18:08:41 11/22/2019 colonoscopy screening (PROC) completed BARCODE Information not available 05/19/2024 14:06:28 06/29/2024 MAMMO, screening, digital, bilateral completed [email or web address] Information not available 07/01/2024 12:23:16 Procedure Notes None recorded. Medical Equipment None Reported. Allergies No known drug allergies Medications Name Sig Start Date Stop Date Status Note LastModified by Organization Details LastModified Time cyclobenzap rine 10 mg tablet 10/19 completed Not Available Not Available Not Available amoxicillin 500 mg capsule Take 1 capsule every 8 hours by oral route. 01/22 completed Not Available Not Available Not Available methocarbam ol 500 mg tablet TAKE 1 AND 1/2 TABLETS BY MOUTH EVERY 6 HOURS NEEDED 09/25 completed Not Available Not Available Not Available metformin 500 mg tablet TK [address] [facility] active Not Available Not Available No t Available Augmentin 875 mg-125 mg tablet Take 1 tablet every 12 hours by oral route for 7 days. 01/28 completed Not Available Not Available Not Available promethazin e-DM 6.25 mg-15 mg/5 mL oral syrup 11/30 completed Not Available Not Available Not Available fluticasone 250 mcg-salmete rol 50 mcg/dose blistr powdr for inhalation INHALE 1 PUFF BY MOUTH TWICE DAILY active Not Available Not Available No t Available clonidine HCl 0.1 mg tablet 08/28 completed Not Available Not Available Not Available acetaminoph en 325 mg tablet 10/19 completed Not Available Not Available Not Available prednisone 10 mg tablet 3 for 3 days, 2 for 3, and 1 for 3 days 05/16 completed Not Available Not Available Not Available Protonix 40 mg tablet,guanakito yed release Take 1 tablet every day by oral route in the morning. 2024 active SIERRA NOV ok to rf Not Available Not Available Not Available gabapentin 600 mg tablet Take 1 tablet 3 times a day by oral route for 30 days. 2024 active SIERRA NOV ok to rf Not Available Not Available Not Available doxycycline hyclate 100 mg capsule 01/22 completed Not Available Not Available Not Available atorvastati n 20 mg tablet TAKE 1 TABLET BY MOUTH EVERY DAY 2024 active SIERRA NOV ok to rf Not Available Not Available Not Available ropinirole 1 mg tablet TK 1 T PO ONCE D 1 TO 3 H B BED 04/05 completed Not Available Not Available Not Available albuterol sulfate 2.5 mg/3 mL (0.083 %) solution for nebulizatio n Inhale 3 mL 3 times a day by nebulizat ion route as needed. 05/26 completed Not Available Not Available Not Available trazodone 50 mg tablet TAKE 1 TO 2 TABLETS BY MOUTH EVERY DAY AT BEDTIME NEEDED 08/22 completed Not Available Not Available Not Available cetirizine 10 mg tablet Take 1 tablet every day by oral route. 12/28 completed Not Available Not Available Not Available atorvastati n 10 mg tablet TK 1 T PO ONCE A DAY active Not Available Not Available No t Available ibuprofen 800 mg tablet 08/22 completed Not Available Not Available Not Available tizanidine 4 mg tablet TAKE 1 TABLET BY MOUTH THREE TIMES DAILY NEEDED 07/14 completed Not Available Not Available Not Available benzonatate 200 mg capsule Take 1 capsule 3 times a day by oral route as needed. 02/14 completed Not Available Not Available Not Available doxepin 25 mg capsule active Not Available Not Available N ot Available hydrocodone 5 mg-acetamin ophen 325 mg tablet 02/23 completed Not Available Not Available Not Available prazosin 1 mg capsule 10/05 completed Not Available Not Available Not Available meloxicam 15 mg tablet TAKE 1 TABLET BY MOUTH EVERY DAY 2024 active [facility]ERRA NOV ok to rf Not Available Not Available Not Available naltrexone 50 mg tablet 06/03 completed Not Available Not Available Not Available ondansetron HCl 4 mg tablet 02/23 completed Not Available Not Available Not Available Medrol (Yannick) 4 mg tablets in a dose pack Take 1 dose pk by oral route as directed. 06/29 completed Not Available Not Available Not Available bupivacaine HCl 0.5 % (5 mg/mL) injection solution Take 20 mg by injection route. 2024 active Not Available Not Available Not Avai lable prednisone 20 mg tablet 05/16 completed Not Available Not Available Not Available alendronate 70 mg tablet TAKE 1 TABLET BY MOUTH WEEKLY 04/05 completed Not Available Not Available Not Available hydroxyzine pamoate 50 mg capsule active Not Available Not Available N ot Available topiramate 25 mg tablet 11/30 completed Not Available Not Available Not Available metronidazo le 500 mg tablet 02/23 completed Not Available Not Available Not Available hydroxyzine HCl 50 mg tablet 09/25 completed Not Available Not Available Not Available ciprofloxac in 500 mg tablet 02/23 completed Not Available Not Available Not Available sulfamethox azole 800 mg-trimetho prim 160 mg tablet 10/05 completed Not Available Not Available Not Available peg-electro lyte solution 420 gram oral solution DRINK AN 8 OZ GLASS BY MOUTH EVERY 15 MINUTES STARTING 5:00 PM UNTIL BOTTLE COMPLETE EVENING PRIOR TO PROCEDURE FOR COLONOSCO PY PREP 10/05 completed Not Available Not Available Not Available tramadol 50 mg tablet 09/25 completed Not Available Not Available Not Available ketorolac 0.5 % eye drops INSTILL 1 DROP IN THE RIGHT EYE THREE TIMES DAILY STARTING 2 DAYS BEFORE SURGERY 08/22 completed Not Available Not Available Not Available prednisone 10 mg tablets in a dose pack Take 1 tab by mouth, 3 times a day for 3 daysTake 1 tab by mouth 2 times a day for 2 daysTake 1 tab by mouth once a day for 1 day 06/29 completed Not Available Not Available Not Available prazosin 5 mg capsule TAKE 1 CAPSULE BY MOUTH EVERY DAY AT BEDTIME FOR 14 DAYS 10/05 completed Not Available Not Available Not Available oxycodone-a cetaminophe n 5 mg-325 mg tablet 11/03 completed Not Available Not Available Not Available alprazolam 0.5 mg tablet 1-2 tablets 30 minutes prior to test 09/25 completed Not Available Not Available Not Available clonidine HCl 0.2 mg tablet 12/17 completed Not Available Not Available Not Available alprazolam 0.25 mg tablet 06/03 completed Not Available Not Available Not Available amitriptyli ne 25 mg tablet 08/22 completed Not Available Not Available Not Available prednisolon e acetate 1 % eye drops,suspe nsion SHAKE LQ AND INT 1 GTT IN OS THREE TIMES DAILY. START GTT AFTER SURGERY UTD 09/28 completed Not Available Not Available Not Available lorazepam 0.5 mg tablet Take 1 tablet twice a day by oral route. 2024 active Not Available Not Available Not Avai lable methocarbam ol 750 mg tablet TK 1 T PO BID 04/05 completed Not Available Not Available Not Available oxycodone-a cetaminophe n 10 mg-325 mg tablet Take 1 tablet every 6 hours by oral route, for moderate pain. 11/03 completed Not Available Not Available Not Available trazodone 100 mg tablet Take 2 tablets every day by oral route at bedtime. 05/29 completed Not Available Not Available Not Available ropinirole 0.25 mg tablet 10/05 completed Not Available Not Available Not Available Kenalog 10 mg/mL suspension for injection Take 20 mg by injection route. 2024 active [facility]: [phone] Not Available Not Available Not Available lorazepam 2 mg tablet take 1 tablet 45mins prior to MRI 11/30 completed Not Available Not Available Not Available benzonatate 100 mg capsule TK 1 C PO TID PRN 08/22 completed Not Available Not Available Not Available triamcinolo ne acetonide 40 mg/mL suspension for injection Take 5 mg by injection route. 01/31 completed Not Available Not Available Not Available ropinirole 2 mg tablet TAKE 1 TABLET BY MOUTH EVERY DAY IN THE EVENING 2024 active [facility] NOV ok to rf Not Available Not Available Not Available cephalexin 500 mg capsule Take 1 capsule every 6 hours by oral route as directed for 7 days. 11/29 completed Not Available Not Available Not Available trazodone 150 mg tablet 05/26 completed Not Available Not Available Not Available ropinirole 0.5 mg tablet active Not Available Not Available Not Available buspirone 10 mg tablet 08/10 completed Not Available Not Available Not Available prednisone 50 mg tablet 10/05 completed Not Available Not Available Not Available polymyxin B sulfate 10,000 unit-trimet hoprim 1 mg/mL eye drops INSTILL 1 DROP IN LEFT EYE THREE TIMES DAILY. BEGIN DROPS 2 DAYS BEFORE SURGERY 11/30 completed Not Available Not Available Not Available gabapentin 300 mg capsule Take 1 capsule 3 times a day by oral route. NEEDS APPT FOR FURTHER REFILLS 01/22 completed Not Available Not Available Not Available diclofenac sodium 75 mg tablet,guanakito yed release TAKE 1 TABLET BY MOUTH TWICE DAILY NEEDED 04/01 completed Not Available Not Available Not Available montelukast 10 mg tablet 04/12 completed Not Available Not Available Not Available hydroxyzine HCl 25 mg tablet TAKE 1 TABLET BY MOUTH EVERY 8 HOURS NEEDED 04/05 completed Not Available Not Available Not Available zolpidem 5 mg tablet 06/29 completed Not Available Not Available Not Available mirtazapine 15 mg tablet TAKE 1/2 TABLET BY MOUTH EVERY DAY AT BEDTIME 10/05 completed Not Available Not Available Not Available ergocalcife rol (vitamin D2) 1,250 mcg (50,000 unit) capsule TAKE 1 CAPSULE BY MOUTH Lamin 2024 active Not Available Not Available Not Avai lable ibuprofen 600 mg tablet 11/30 completed Not Available Not Available Not Available levofloxaci n 500 mg tablet Take 1 tablet every 24 hours by oral route for 7 days. active Not Available Not Available No t Available dextrometho jacqueline-guwoodyf enesin 30 mg-600 mg tablet extended ezvqtzo45 hr Take 1 tablet every 12 hours by oral route for 7 days. 07/12 completed Not Available Not Available Not Available albuterol sulfate HFA 90 mcg/actuati on aerosol inhaler INHALE 2 PUFFS BY MOUTH EVERY 6 HOURS NEEDED active Not Available Not Available No t Available celecoxib 100 mg capsule TAKE 1 CAPSULE BY MOUTH TWICE DAILY 10/05 completed Not Available Not Available Not Available ondansetron 4 mg disintegrat ing tablet Place 1 tablet 3 times a day by transling ual route as needed. 01/31 completed Not Available Not Available Not Available topiramate 100 mg tablet 09/04 completed Not Available Not Available Not Available fluticasone propionate 50 mcg/actuati on nasal spray,suspe nsion SHAKE LIQUID AND USE 1 SPRAY IN EACH NOSTRIL EVERY DAY 09/13 completed Not Available Not Available Not Available metformin ER 500 mg tablet,exte nded release 24 hr 09/25 completed Not Available Not Available Not Available sertraline 50 mg tablet active Not Available Not Available Not Available prazosin 2 mg capsule TAKE 1 CAPSULE BY MOUTH EVERY DAY AT BEDTIME FOR 14 DAYS 10/05 completed Not Available Not Available Not Available buspirone 15 mg tablet active Not Available Not Available Not Available enoxaparin 40 mg/0.4 mL subcutaneou s syringe 08/22 completed Not Available Not Available Not Available metaxalone 800 mg tablet 10/31 completed Not Available Not Available Not Available nicotine 21mg/24hr-1 4mg/24hr-7m g/24hr daily transderm patches,seq uentl use as directed on the package 05/02 completed Not Available Not Available Not Available bupropion HCl XL 300 mg 24 hr tablet, extended release active Not Available Not Available Not Available bupropion HCl XL 150 mg 24 hr tablet, extended release 01/31 completed Not Available Not Available Not Available Marcaine (PF) 0.5 % (5 mg/mL) injection solution Take 40 mg by injection route. 08/10 completed Not Available Not Available Not Available erythromyci n with ethanol 2 % topical solution 08/22 completed Not Available Not Available Not Available duloxetine 30 mg capsule,del ayed release TAKE 1 CAPSULE BY MOUTH EVERY DAY 09/21 completed Not Available Not Available Not Available duloxetine 60 mg capsule,del ayed release TAKE ONE CAPSULE BY MOUTH ONCE DAILY active Not Available Not Available No t Available Boostrix Tdap 2.5 Lf unit-8 mcg-5 Lf/0.5 mL intramuscul ar syringe ADM 0.5ML IM UTD 08/22 completed Not Available Not Available Not Available pregabalin 75 mg capsule TK 1 C PO BID 11/30 completed Not Available Not Available Not Available pregabalin 150 mg capsule TAKE 1 CAPSULE BY MOUTH TWICE DAILY 10/05 completed Not Available Not Available Not Available Fish Oil 02/27 completed Not Available Not Available Not Available lidocaine (PF) 10 mg/mL (1 %) injection solution In office injection administe red by the provider 05/02 completed [facility]: [phone] Not Available Not Available Not Available lidocaine (PF) 5 mg/mL (0.5 %) injection solution in office procedure , administe red by provider 09/25 completed Not Available Not Available Not Available varenicline tartrate 0.5 mg tablet Take 1 tablet every day by oral route for 3 days. active Not Available Not Available No t Available tramadol ER 200 mg tablet,exte nded release 24 hr 03/13 completed Not Available Not Available Not Available tramadol ER 300 mg tablet,exte nded release 24 hr active Not Available Not Available Not Available Fish Oil 340 mg-1,000 mg capsule TK 1 C PO ONCE A DAY 08/22 completed Not Available Not Available Not Available peg 3350-electr olytes 236 gram-22.74 gram-6.74 gram-5.86 gram solution Drink an 8oz glass every 15 minutes starting at 500pm until bottle complete evening prior to procedure for colonosco py prep 10/05 completed Not Available Not Available Not Available Xifaxan 550 mg tablet 07/12 completed Not Available Not Available Not Available Suprep Bowel Prep Kit 17.5 gram-3.13 gram-1.6 gram oral solution DIRECTED 11/30 completed Not Available Not Available Not Available ropivacaine (PF) 5 mg/mL (0.5 %) injection solution in office 06/03 completed Not Available Not Available Not Available Ilevro 0.3 % eye drops,suspe nsion SHAKE LQ AND INT 1 GTT IN OS DAILY. BEGIN GTS 2 DAYS B SURGERY UTD 08/22 completed Not Available Not Available Not Available Breo Ellipta 100 mcg-25 mcg/dose powder for inhalation INL 1 PUFF PO QD 2023 active Not Available Not Available Not Avai lable Trulicity 1.5 mg/0.5 mL subcutaneou s pen injector 12/17 completed Not Available Not Available Not Available Trulicity 0.75 mg/0.5 mL subcutaneou s pen injector 08/28 completed Not Available Not Available Not Available Rexulti 1 mg tablet 02/23 completed Not Available Not Available Not Available Rexulti 0.5 mg tablet 01/31 completed Not Available Not Available Not Available naloxone 4 mg/actuatio n nasal spray 09/25 completed Not Available Not Available Not Available Fish Oil 1,000 mg (120 mg-180 mg) capsule Take by oral route. 10/31 completed Not Available Not Available Not Available fluticasone 113 mcg-salmete rol 14 mcg/actuati on breath activated powdr 08/22 completed Not Available Not Available Not Available Flucelvax Quad 60 mcg (15 mcg x 4)/0.5 mL intramuscul ar susp ADM 0.5ML IM UTD active Not Available Not Available No t Available Trulicity 3 mg/0.5 mL subcutaneou s pen injector 06/29 completed Not Available Not Available Not Available Mounjaro 5 mg/0.5 mL subcutaneou s pen injector active Not Available Not Available Not Available Mounjaro 2.5 mg/0.5 mL subcutaneou s pen injector 01/31 completed Not Available Not Available Not Available Vitals Date Recorded Body height Body mass index (BMI) Body weight Provider Name and Address Organization Details Last Updated DateTime 03/23/2024 149.86 cm 46.5 kg/m2 330919.25 g NINA Trevino [place] [facility] 03/23/2024 09:54:27 Date Recorded Body height Body mass index (BMI) Body weight Body temperature Heart rate Oxygen saturation Oxygen saturation in Arterial blood by Pulse oximetry Systolic blood pressure Diastolic blood pressure Provider Name and Address Organization Details Last Updated DateTime 02/20/202 5 149.86 cm 47.3 kg/m2 112292. 61 g 97.2 [degF] 94 /min 96 % 96 % 114 mm[Hg] 76 mm[Hg] Deniamichelle edward [facility] [facility] 5 11:59:44 Date Recorded Body height Body mass index (BMI) Body weight Heart rate Respiratory rate Oxygen saturation Oxygen saturation in Arterial blood by Pulse oximetry Systolic blood pressure Diastolic blood pressure Provider Name and Address Organization Details Last Updated DateTime 149.86 cm 47.3 kg/m2 022034. 61 g 84 /min 14 /min 98 % 98 % 131 mm[Hg] 72 mm[Hg] Chyna Alexander [facility] [employer] [facility] 16:42:23 Date Recorded Body height Body mass index (BMI) Body weight Provider Name and Address Organization Details Last Updated DateTime 06/22/2024 149.86 cm 46.5 kg/m2 042861.25 g Chrissie Resendiz CNA [facility] 06/22/2024 10:21:38 Date Recorded Body height Body mass index (BMI) Body weight Body temperature Heart rate Oxygen saturation Oxygen saturation in Arterial blood by Pulse oximetry Systolic blood pressure Diastolic blood pressure Provider Name and Address Organization Details Last Updated DateTime 149.86 cm 46.7 kg/m2 114018. 84 g 97.4 [degF] 89 /min 97 % 97 % 128 mm[Hg] 68 mm[Hg] Ayleen garcia [facility] [employer] [facility] 14:32:04 Social History Question Answer Notes LastModified by Organization Details LastModified Time Tobacco Smoking Status Current Every Day Smoker Not Available [facility] 04/10/2022 20:38:15 How Much Tobacco Do You Chew? None [id number] Information not available 04/10/2022 In The 14 Days Before Symptom Onset, Have You Had Close Contact With A Laboratory-confi rmed COVID-19 While That Case Was Ill? No [id number] Information not available 04/10/2022 In The 14 Days Before Symptom Onset, Have You Had Close Contact With A Person Who Is Under Investigation For COVID-19 While That Person Was Ill? No [id number] Information not available 04/10/2022 What Type Of Diet Are You Following? REGULAR [id number].[id number] Information not available 04/10/2022 Do You Have An Electrostatic Air Filter? No [id number].[id number] Information not available 04/10/2022 Do You Have A Humidifier? Yes [id number].[id number] [id number] Information not available 04/10/2022 Where Do You Live? [place] MIGRATION.[id number] [id number] Information not available 04/10/2022 Do You Have Moisture Problems In Your Home? Yes MIGRATION.[id number] [id number] Information not available 04/10/2022 What Was The Date Of Your Most Recent Tobacco Screening? 03/02/2024 Information not available 03/02/2024 Do You Have Any Pets? Yes [id number].[id number] Information not available 04/10/2022 Do You Use Your Seat Belt Or Car Seat Routinely? Yes [id number].[id number] [id number] Information not available 04/10/2022 Do You Have Smoke And Carbon Monoxide Detectors In Your Home? No MIGRATION.0301 [id number] Information not available 04/10/2022 At What Age Did You Start Smoking Tobacco? 18 MIGRATION.[id number] [id number] Information not available 04/10/2022 Are You Passively Exposed To Smoke? No MIGRATION.0301 [id number] Information not available 04/10/2022 How Much Tobacco Do You Smoke? 0.25 PPD Less Than A Half Pack 5 Cigs A Day Information not available 11/04/2023 Do You Use Sunscreen Routinely? No MIGRATION.0301 [id number] Information not available 04/10/2022 How Many Years Have You Smoked Tobacco? 40 Information not available 11/04/2023 Have You Recently Traveled Abroad? No MIGRATION.[id number] [id number] Information not available 04/10/2022 Do You Have Any Dietary Restrictions? No MIGRATION.0301 [id number] Information not available 04/10/2022 Sex: Unknown Functional Status Question Answer Note LastModified by Organizat ion Details LastModified Time What is your level of alcohol consumption? None [id number] Information not available 04/10/2022 Do you or have you ever used smokeless tobacco? Never used smokeless tobacco MIGRATION.[id number] Information not available 04/10/2022 Are you currently employed? No on disability Information not available 06/06/2022 Do you or have you ever used e-cigarettes or vape? Never used electronic cigarettes MIGRATION.[id number] Information not available 04/10/2022 What is your exercise level? Occasional [id number] Information not available 04/10/2022 Mental Status Question Answer Note LastModified by Organizat ion Details LastModified Time Do you feel stressed (tense, restless, nervous, or anxious, or unable to sleep at night)? [id number] Information not available 04/10/2022 Family History Relationship Description Onset Age of this Age Resolved Age Notes LastModified by Organization Details LastModified Time Mother Diabetes mellitus [id number] Not available 04/10/2022 20:38:17 Mother Malignant tumor of breast MIGRATION.893 [id number] Not available 04/10/2022 20:38:17 Father Myocardial infarction [id number] Not available 04/10/2022 20:38:17 Father Malignant neoplasm of lung MIGRATION.081 [id number] Not available 04/10/2022 20:38:17 Brother Malignant tumor of esophagus [id number] Not available 04/10/2022 20:38:17 Brother Obstructive sleep apnea syndrome [id number].036 [id number] Not available 04/10/2022 20:38:17 Sister Diabetes mellitus MIGRATION.244 [id number] Not available 04/10/2022 20:38:17 Sister Obstructive sleep apnea syndrome [id number].627 [id number] Not available 04/10/2022 20:38:17 Brother Diabetes mellitus BROTHE RS [email or web address] Not available 07/15/2023 14:30:06 Medical History Condition Response BLINDNESS N KIDNEY STONES N MRSA N CARPAL TUNNEL SYNDROME N LUNG DISEASE/DISORDER N HISTORY OF DRUG ABUSE N RADIATION / CHEMOTHERAPY N COPD Y SPORTS INJURY N ANKLE PAIN N BLOOD DISEASES N SCHIZOPHRENIA N SHINGLES N SHOULDER PAIN N BOWEL PROBLEMS N DEPRESSION (INCLUDING POST ) N STROKE/TIA N ULCERS N KNEE PAIN N BENIGN PROSTATIC HYPERPLASIA N OBESITY Y GERD/NAUSEA N ANEURYSM N URINARY/BLADDER/KIDNEY PROBLEMS N CORONARY ARTERY DISEASE (CAD) N ADDICTION CONCERNS N USE OF BLOOD THINNERS N SKIN PROBLEMS N EMPHYSEMA N MUSCLE,JOINT OR BONE PROBLEMS N DVT N STOMACH ULCERS N BLOOD CLOTS N USE OF NSAIDS N CONCUSSION OR SPINAL TRAUMA N NEUROPATHY N AIDS/HIV N FRACTURES N HYPERTENSION N ELBOW PAIN N TOURETTE'S N Metal allergy N ANXIETY DISORDER N BLOOD TRANSFUSION N ANEMIA/BLOOD DISORDER N BIPOLAR DISORDER N BRONCHITIS N OSTEOARTHRITIS N TUBERCULOSIS N FOOT PROBLEM N HEART VALVE DISORDERS N ALLERGIES/HAYFEVER N SOFT TISSUE INJURY N INFECTIOUS DISEASE N HEART ARRHYTHMIA N INSOMNIA N HIGH CHOLESTEROL / HYPERLIPIDEMIA N RHEUMATOID ARTHRITIS N EDEMA N CHRONIC PAIN SYNDROME N CAROTID BLOCKAGE N BACK / NECK PROBLEMS Y HAVE YOU BEEN HOSPITALIZED OR SEEN IN [facility] ER IN THE PAST YEAR ? N BURSITIS N HERNIATED DISC N DIALYSIS N FIBROMYALGIA N OSTEOPOROSIS Y ARTHRITIS Y NO SIGNIFICANT PAST MEDICAL HISTORY N PERIPHERAL NEUROPATHY N DIABETES, TYPE Y HEARTBURN / REFLUX N HEPATITIS / LIVER DISEASE N GOUT N ALZHEIMER'S DISEASE N SLEEP DISORDER N HERPES N HEADACHES/MIGRAINES N SEIZURES/EPILEPSY N VASCULAR DISEASE N Blood Disorder N HIP PAIN N DIZZINESS N HEAD TRAUMA OR INJURY N HEART DISEASE/HEART PROBLEMS N MULTIPLE SCLEROSIS N CANCER: SPECIFY N CARDIAC ARRHYTHMIA N ANESTHESIA COMPLICATIONS N ATRIAL FIBRILLATION N AUTOIMMUNE DISEASE N Gynecological HistoryNo gynecological history recorded. Obstetrics History GPAL:G 0 P 0 0 0 0 Immunizations Vaccine Type Date Status Note Provider Nam e and Address Organization Details Recorded Time COVID-19, mRNA, LNP-S, PF, 30 mcg/0.3 mL dose 2 completed Not Available [facility] 04/10/2022 20:39:43 COVID-19, mRNA, LNP-S, PF, 30 mcg/0.3 mL dose 1 completed Not Available [facility] 04/10/2022 20:39:43 COVID-19, mRNA, LNP-S, PF, 30 mcg/0.3 mL dose 1 completed Not Available [facility] 04/10/2022 20:39:43 pneumococcal polysaccharide PPV23 1 completed Not Available [facility] 04/10/2022 20:39:43 Influenza, split virus, quadrivalent, PF 1 completed Not Available [facility] 04/10/2022 20:39:43 Past Encounters Encounter ID Performer Location Encounter Start Date Encounter Closed Date Diagnosis/Indication Diagnosis SNOMED-CT Code Diagnosis ICD10 Code Diagnosis Note [id number] Morgan Vilchis MD [facility] [address] [place] [address] 08/22/2020 00:00:00 08/22/2020 18:07:04 [id number] Jeremi Carreno MD [facility] [address] [address] 09/21/2020 00:00:00 09/21/2020 10:35:15 [id number] MD DAE Latham[facility] [address] [address] 10/05/2020 00:00:00 10/05/2020 12:19:14 [id number] Jeremi Carreno MD [facility] [address] [address] 11/23/2020 00:00:00 11/23/2020 15:44:22 [id number] MD SUZANNE ArauzS[facility] Internal [address] [address] 11/30/2020 00:00:00 11/30/2020 17:31:43 [id number] Alonzo Solo MD [facility] Ortho [address] [place] [address] 12/06/2020 00:00:00 12/06/2020 14:42:58 [id number] Jeremi Carreno MD [facility] [address] [address] 12/21/2020 00:00:00 12/21/2020 15:58:56 [id number] Jeremi Carreno MD [facility] [address] [address] 12/28/2020 00:00:00 12/28/2020 15:56:12 [id number] Jeremi Carreno MD [facility] [address] [address] 03/29/2021 00:00:00 03/29/2021 15:27:17 [id number] Morgan Vilchis MD [facility] [address] [address] 04/05/2021 00:00:00 04/05/2021 15:09:10 [id number] Jeremi Carreno MD [facility] [address] 04/12/2021 00:00:00 04/12/2021 10:35:42 [id number] Morgan Vilchis MD [facility] Med [address] [place] [address] 04/27/2021 00:00:00 04/27/2021 15:58:34 [id number] MD DAE Arauz[facility] [address] [address] 05/02/2021 00:00:00 05/02/2021 13:11:39 [id number] Carmelo olivera MD [facility] [address] [facility], [address] [address] 05/03/2021 00:00:00 05/03/2021 13:45:55 [id number] Alonzo Solo MD Giovanni[facility] [place] [address] [facility] [address] [place] [address] 05/08/2021 00:00:00 05/08/2021 16:29:23 [id number] Carmelo olivera MD [facility] General [facility] [address] [facility], [address] [address] 05/29/2021 00:00:00 05/29/2021 12:04:26 [id number] MD SUZANNE ArauzS[facility] Internal Med [address] [address] 06/06/2021 00:00:00 06/06/2021 15:18:50 [id number] Jeremi Carreno MD [facility] [address] [address] 07/12/2021 00:00:00 07/12/2021 11:29:39 [id number] MD DAE Gonsales[facility] Ortho [place] [address] [place] [address] 09/25/2021 00:00:00 09/25/2021 10:09:01 [id number] Morgan Vilchis MD [facility] Internal Med [address] [address] 09/28/2021 00:00:00 09/28/2021 13:41:07 [id number] Jeremi Carreno MD [facility] [address] [address] 10/11/2021 00:00:00 10/11/2021 11:40:21 [id number] Braxton Quintanilla MD [facility] [address] [address] 10/31/2021 00:00:00 10/31/2021 16:20:42 [id number] Morgan Vilchis MD [facility] Med [address] [address] 01/01/2022 00:00:00 01/01/2022 17:00:20 [id number] Jeremi Carreno MD [facility] [address] 01/24/2022 00:00:00 01/24/2022 14:28:07 [id number] Braxton Quintanilla MD [facility] [address] [address] 02/20/2022 00:00:00 02/20/2022 13:09:04 [id number] Alonzo Solo MD [facility] [place] [address] [place] [address] 02/26/2022 00:00:00 02/26/2022 12:10:25 [id number] Braxton Quintanilla MD [facility] [address] [address] 03/20/2022 00:00:00 03/20/2022 12:25:43 [id number] Jeremi Carreno MD [facility] [place] [address] [place] [address] 05/16/2022 09:13:06 05/16/2022 09:48:54 Bilateral osteoarthritis of knees 7784042345 69945 M17.0 [id number] Alonzo Solo MD [facility] [place] [address] [place] [address] 06/04/2022 14:29:28 06/04/2022 15:13:34 Pain in right hand 2740934841 98309 M79.641 Trigger fi nger of right hand 7825240329 9550699 M65.30 Carpal neil isela syndrome of left wrist 0563507052 27229 G56.02 Osteoarthritis 282435145 M19.041 [id number] Braxton Quintanilla MD [facility] [place] [address] [address] 06/06/2022 14:30:55 06/07/2022 08:29:56 Smoker 31885492 F17.218 F17.219 Z87.891 Obstructiv e sleep apnea syndrome 69830074 G47.33 [id number] Morgan Vilchis MD [facility] [place] [address] [facility] [place] [address] 06/11/2022 14:33:23 06/11/2022 15:06:25 Chronic obstructive pulmonary disease 52355530 J44.9 under control Gastroesop hageal reflux disease 582837218 K21.9 stable Restless legs 87170723 G 25.81 better with current dose Depressive disorder 3548 9007 F32.9 seeing psych Anxiety 07196241 F41.9 seeing psych Insomnia 504249493 G47.0 0 ON MEDS Neuropathy 038980097 G62 .9 WANTS TO TRY GABAPENTIN AGAIN Chronic low back pain 27 9228354 M54.50 seeing pain management Osteoarthritis 113418905 M19.041 seen ortho Fibromyalgia 814183008 M 79.7 meds did not help Smoker 35038759 F17.218 F17.219 Z87.891 advised to quit Intermitte nt claudication 45860764 I73.9 Prediabetes 266581191 R7 3.03 keep watching diet Adult heal th examination 631468290 Z00.00 Mammogram- 10/2021Flu - 2PPV 23-11/2020 Dexa- OV ID-All three vaccinesCt Chest- 11/2020 [id number] Jeremi Carreno MD [facility] [address] [address] 08/22/2022 14:02:20 08/22/2022 14:52:23 Bilateral osteoarthritis of knees 7996866044 50462 M17.0 [id number] Braxton Quintanilla MD [facility] [place] [address]44 [facility] 15 [place] [address] 09/04/2022 14:29:25 09/05/2022 08:34:11 Smoker 50445628 F17.218 F17.219 Z87.891 Obstructiv e sleep apnea syndrome 14368283 G47.33 [id number] Morgan Vilchis MD [facility] [address] [address] 09/13/2022 09:59:27 09/13/2022 11:01:09 Hiatal hernia 23929782 K44.9 may have to stop trulicity if not better Gastritis 6447524 K29.70 start meds [id number] Jeremi Carreno MD S_[facility] [address] 10/31/2022 14:15:40 10/31/2022 15:10:09 Pain of bilateral hands 2485859235 6131133 M79.641 M79.542 [id number] Jeremi Carreno MD S_[facility] [address] 11/28/2022 14:03:48 11/28/2022 14:34:14 Bilateral osteoarthritis of knees 7960949343 56516 M17.0 [id number] Morgan Vilchis MD [facility] [address] [address] 12/17/2022 10:21:02 12/17/2022 11:23:04 Chronic obstructive pulmonary disease 32103150 J44.9 under control Gastroesop hageal reflux disease 585359062 K21.9 stable Restless legs 82493663 G 25.81 better with current dose Depressive disorder 3548 9007 F32.9 seeing psych Anxiety 11125484 F41.9 seeing psych Insomnia 557179776 G47.0 0 meds help Neuropathy 302211797 G62 .9 on meds , ^ the dose Chronic low back pain 27 1210763 M54.50 seeing pain management Osteoarthritis 802818709 M19.041 seen ortho Fibromyalgia 658483051 M 79.7 on meds Smoker 99253722 F17.218 F17.219 Z87.891 advised to quit Intermitte nt claudication 76722441 I73.9 to take asa Prediabetes 936602950 R7 3.03 keep watching diet Adult heal th examination 658853267 Z00.00 Mammogram- 11/05/22Fl u- 3PPV 23 Dexa- 11/2020, had it 2022 ordered by another [place] nam three vaccinesCt Chest- 11/2020 Heart murmur 17592391 R0 1.1 SEEING ANOTHER PCP and had echo recently Nausea 501056685 R11.0 [id number] Jeremi Carreno MD [place] [address] 01/30/2023 14:51:24 01/30/2023 15:22:47 Pain of bilateral hands 8227356716 9404132 M79.641 M79.286 [id number] Braxton Quintanilla MD [facility] [address] [place] [address] 02/20/2023 12:20:39 02/21/2023 08:42:57 Smoker 60552841 F17.218 F17.219 Z87.891 Obstructiv e sleep apnea syndrome 01183644 G47.33 [id number] Jeremi Carreno MD [facility] [place] [address] 02/27/2023 13:44:43 03/24/2023 10:53:03 Bilateral osteoarthritis of knees 7112596912 15610 M17.0 [id number] Kwaku Belle MD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
[2024-07-02 11:07] VITALS: BP 137/79; PULSE 106; RESP 20; TEMP 36.1; O2SAT 99; BMI 46.0
[2024-07-02] MEDS: LACTATED RINGERS 1,000 ML 150 ML IV CONT (11:17)
--- NOTE | 2024-07-02 11:57 | P.PNAN_ITS ---
Anes - Initial Pre Proc Eval Procedure: Operation Date: 07/02/24 12:30 Proposed Procedures p Esophagogastroduodenoscopy - Shamir Briggs MD Date/Time: 07/02/24 11:57 Surgeon: Shamir Briggs MD Pre Op Diagnosis: GERD Patient Data Age: 63 Gender: F Height: 1.5 m Weight: 103.3 kg Last Vital Signs Temp 36.1 C L 07/02/24 11:07 Pulse 106 H 07/02/24 11:07 Resp 20 07/02/24 11:07 BP 137/79 07/02/24 11:07 Pulse Ox 99 07/02/24 11:07 O2 Del Method Room Air 07/02/24 11:07 Allergies Allergy/AdvReac Type Severity Reaction Status Date / Time No Known Allergies Allergy Verified 07/02/24 11:04 Home Medications ?Medication ?Instructions ?Recorded ?Confirmed ?Type diclofenac sodium 75 mg 75 mg PO BID 03/30/21 07/02/24 History tablet,delayed release duloxetine 60 mg capsule,delayed 60 mg PO DAILY 03/30/21 07/02/24 History release hydroxyzine HCl 50 mg tablet 50 mg PO BID 03/30/21 07/02/24 History metformin 500 mg tablet 500 mg PO BID 03/30/21 07/02/24 History methocarbamol 750 mg tablet 750 mg PO TID 03/30/21 07/02/24 History tirzepatide 5 mg/0.5 mL 5 mg subcut WEEKLY weight loss 06/25/24 07/02/24 History subcutaneous pen injector (Mounjaro) tramadol 300 mg tablet,extended 300 mg PO DAILY PRN pain 06/25/24 07/02/24 History release 24 hr Patient hx anesthesia problems: none Family hx anesthesia problems: none Results Review: All pre-operative results and documents have been reviewed as part of the pre- operative evaluation. [facility] Past Medical History Medical History Postmenopausal bleeding Osteoporosis Arthritis COPD (chronic obstructive pulmonary disease) Surgical History Surgical History H/O eye surgery History of tubal ligation H/O foot surgery Family History Family History Mother Breast cancer Other Diabetes mellitus Social History Social History Smoking status: Current every day smoker Tobacco type: cigarettes Alcohol intake: never Substance use: never Substance use type: does not use Living arrangements: alone Occupation/Education: retired Gender identity (if verbalized by the patient): Female Spiritual care concerns: No Anes - Eval Final PreProcedure Day of Procedure 07/02/24 11:57 Patient weight: morbidly obese Heart: regular rate and rhythm Lungs: decreased breath sounds Airway: Mallampati scale class II Neurological: alert and oriented Last oral intake: >/= 8 hours ASA classification: III Emergent: no Anesthetic plan: proceed Anesthesia type and monitoring: general GIVS and standard monitoring Results Review: All pre-operative results and documents have been reviewed as part of the pre- operative evaluation. Informed Consent: The patient's anesthetic plan and its attendant risks and benefits were discussed with the patient/family/POA. Questions were solicited and answers provided to the satisfaction of the patient/family/POA.
--- NOTE | 2024-07-02 13:04 | PM.IMHP ---
H&P: HPI History of Present Illness Date/Time: 07/02/24 13:04 Chief Complaint: Dysphagia Narrative: the patient has been complaining of intermittent dysphagia to solid food for the past 2 years. She used to have reflux but is now controlled with PPI. there is occasional diffuse epigastric and upper quadrant discomfort after meals. Review of Systems Review of Systems: All systems reviewed & are unremarkable except as noted in HPI and below PMFSH Past Medical History Medical History Postmenopausal bleeding Osteoporosis Arthritis COPD (chronic obstructive pulmonary disease) Surgical History Surgical History H/O eye surgery History of tubal ligation H/O foot surgery Family History Family History Mother Breast cancer Other Diabetes mellitus Social History Social History Smoking status: Current every day smoker Tobacco type: cigarettes Alcohol intake: never Substance use: never Substance use type: does not use Living arrangements: alone Occupation/Education: retired Gender identity (if verbalized by the patient): Female Spiritual care concerns: No Meds Home Medications and Allergies Home Medications ?Medication ?Instructions ?Recorded ?Confirmed ?Type diclofenac sodium 75 mg 75 mg PO BID 03/30/21 07/02/24 History tablet,delayed release duloxetine 60 mg capsule,delayed 60 mg PO DAILY 03/30/21 07/02/24 History release hydroxyzine HCl 50 mg tablet 50 mg PO BID 03/30/21 07/02/24 History metformin 500 mg tablet 500 mg PO BID 03/30/21 07/02/24 History methocarbamol 750 mg tablet 750 mg PO TID 03/30/21 07/02/24 History tirzepatide 5 mg/0.5 mL 5 mg subcut WEEKLY weight loss 06/25/24 07/02/24 History subcutaneous pen injector (Mounjustinro) tramadol 300 mg tablet,extended 300 mg PO DAILY PRN pain 06/25/24 07/02/24 History release 24 hr Allergies Allergy/AdvReac Type Severity Reaction Status Date / Time No Known Allergies Allergy Verified 07/02/24 11:04 Vital Signs Vital Signs - 24 hr 07/02/24 11:07 Temperature 97 F L Pulse Rate 106 H Respiratory Rate 20 Blood Pressure 137/79 Pulse Oximetry 99 Oxygen Delivery Room Air Exam Const: General: cooperative and healthy appearing Resp: Effort & Inspection: normal respiratory effort and able to speak in complete sentences Auscultation: clear to auscultation bilaterally Cardio: Rate: regular rate Rhythm: regular rhythm GI: Inspection: normal to inspection GI Palp: No No hepatosplenomegaly present Auscultation: normal bowel sounds Rectal Exam: deferred Skin: General skin exam: normal color Psych: Appearance: grossly normal Mental Status: mental status grossly normal Assessment and Plan Assessment and plan (1) Dysphagia: Code(s): R13.10 - Dysphagia, unspecified Status: Acute Assessment and Plan: The patient is deemed a good candidate for the procedure. Consent signed. Will proceed.
[2024-07-02] MEDS: BENZOCAINE (*SP) 60 ML SPRAY CAN (HURRICAINE) 1 SPRAY MUCOUS MEM (13:05)
[2024-07-02 13:24] VITALS: BP 143/92; PULSE 107; RESP 22; O2SAT 100
[2024-07-02 13:34] VITALS: BP 132/83; PULSE 101; RESP 18; O2SAT 99
[2024-07-02 13:44] VITALS: BP 118/71; PULSE 84; RESP 18; O2SAT 98
== END 2024-07-02 14:05 | disposition home or self-care (01) ==
PROVIDERS: PCP Internal Medicine; Referring Provider Internal Medicine; Visit Provider Internal Medicine Gastroenterology
PROC: 0DJ08ZZ Inspection of Upper Intestinal Tract, Via Natural or Artificial Opening Endoscopic (ICD-10-PCS; CPT 43235; principal; 2024-07-02 12:30)
DX: K22.2 Esophageal obstruction (principal); K29.30 Chronic superficial gastritis without bleeding; K44.9 Diaphragmatic hernia without obstruction or gangrene; K21.9 Gastro-esophageal reflux disease without esophagitis; M81.0 Age-related osteoporosis without current pathological fracture; J44.9 Chronic obstructive pulmonary disease, unspecified; M19.90 Unspecified osteoarthritis, unspecified site; F17.210 Nicotine dependence, cigarettes, uncomplicated; E66.01 Morbid (severe) obesity due to excess calories; Z68.42 Body mass index [BMI] 45.0-49.9, adult; Z79.84 Long term (current) use of oral hypoglycemic drugs; Z79.891 Long term (current) use of opiate analgesic; Z79.85 Long-term (current) use of injectable non-insulin antidiabetic drugs; Z98.890 Other specified postprocedural states; Z98.51 Tubal ligation status; Z80.3 Family history of malignant neoplasm of breast
CPT/HCPCS: 43235; J2704; J7120

== ENCOUNTER 2024-10-22 00:33 | Day surgery (SDC) | payer MEDICARE, MEDICAID, SELFPAY ==
[2024-10-07 13:51] VITALS: BMI 43.6
--- NOTE | 2024-10-22 11:56 | WPDANESEPPF ---
Anes - Initial Pre Proc Eval Procedure: Operation Date: 10/22/24 13:00 Proposed Procedures p Screening Colonoscopy - Shamir Briggs MD Date/Time: 10/22/24 11:56 Surgeon: Shamir Briggs MD Pre Op Diagnosis: Screening Patient Data Age: 63 Gender: F Height: 1.5 m Weight: 98 kg Allergies Allergy/AdvReac Type Severity Reaction Status Date / Time No Known Allergies Allergy Verified 10/07/24 13:45 Home Medications ?Medication ?Instructions ?Recorded ?Confirmed ?Type diclofenac sodium 75 mg 75 mg PO BID 03/30/21 10/07/24 History tablet,delayed release duloxetine 60 mg capsule,delayed 60 mg PO DAILY 03/30/21 10/07/24 History release hydroxyzine HCl 50 mg tablet 50 mg PO BID 03/30/21 10/07/24 History metformin 500 mg tablet 500 mg PO BID 03/30/21 07/02/24 History methocarbamol 750 mg tablet 750 mg PO TID 03/30/21 07/02/24 History tirzepatide 5 mg/0.5 mL 5 mg subcut WEEKLY weight loss 06/25/24 10/07/24 History subcutaneous pen injector (Mounjaro) peg 3350-electrolytes 236 240 ml PO Q10M #4,000 mL 07/13/24 10/07/24 Rx gram-22.74 gram-6.74 gram-5.86 gram solution (Golytely) morphine 15 mg tablet,extended 15 mg PO Q12H 10/07/24 10/07/24 History release Patient hx anesthesia problems: none Family hx anesthesia problems: none Results Review: All pre-operative results and documents have been reviewed as part of the pre-operative evaluation. [facility] Past Medical History Medical History (Updated 10/21/24 @ 15:40 by Oskar Garay DO) Anxiety GERD (gastroesophageal reflux disease) ANOOP (obstructive sleep apnea) Postmenopausal bleeding Osteoporosis Arthritis COPD (chronic obstructive pulmonary disease) Surgical History Surgical History H/O eye surgery History of tubal ligation H/O foot surgery Family History Family History Mother Breast cancer Other Diabetes mellitus Social History Social History Years smoked: 40 Smoking status: Current every day smoker Tobacco type: cigarettes Alcohol intake: never Substance use: never Substance use type: does not use Living arrangements: with family Occupation/Education: retired Gender identity (if verbalized by the patient): Female Spiritual care concerns: No Anes - Eval Final PreProcedure Day of Procedure 10/22/24 11:56 Patient weight: morbidly obese Heart: regular rate and rhythm Lungs: clear to auscultation Airway: Mallampati scale class II Neurological: alert and oriented Last oral intake: >/= 8 hours ASA classification: III Emergent: no Anesthetic plan: proceed Anesthesia type and monitoring: general GIVS and standard monitoring Results Review: All pre-operative results and documents have been reviewed as part of the pre-operative evaluation. Informed Consent: The patient's anesthetic plan and its attendant risks and benefits were discussed with the patient/family/POA. Questions were solicited and answers provided to the satisfaction of the patient/family/POA.
[2024-10-22 12:05] VITALS: BP 124/84; PULSE 85; RESP 18; TEMP 36.4; O2SAT 98
[2024-10-22] MEDS: LACTATED RINGERS 1,000 ML 150 ML IV CONT (12:23)
--- NOTE | 2024-10-22 12:51 | PM.IMHP ---
H&P: HPI History of Present Illness Date/Time: 10/22/24 12:51 Chief Complaint: History of colon polyps Narrative: The patient has a history of colonic polyps, the last colonoscopy was 5 years ago. Review of Systems Review of Systems: All systems reviewed & are unremarkable except as noted in HPI and below PMFSH Past Medical History Medical History (Updated 10/22/24 @ 12:52 by Shamir Briggs MD) Anxiety GERD (gastroesophageal reflux disease) ANOOP (obstructive sleep apnea) Postmenopausal bleeding Osteoporosis Arthritis COPD (chronic obstructive pulmonary disease) Surgical History Surgical History H/O eye surgery History of tubal ligation H/O foot surgery Family History Family History Mother Breast cancer Other Diabetes mellitus Social History Social History Years smoked: 40 Smoking status: Current every day smoker Tobacco type: cigarettes Alcohol intake: never Substance use: never Substance use type: does not use Living arrangements: with family Occupation/Education: retired Gender identity (if verbalized by the patient): Female Spiritual care concerns: No Meds Home Medications and Allergies Home Medications ?Medication ?Instructions ?Recorded ?Confirmed ?Type diclofenac sodium 75 mg 75 mg PO BID 03/30/21 10/22/24 History tablet,delayed release duloxetine 60 mg capsule,delayed 60 mg PO DAILY 03/30/21 10/22/24 History release hydroxyzine HCl 50 mg tablet 50 mg PO BID 03/30/21 10/22/24 History metformin 500 mg tablet 500 mg PO BID 03/30/21 10/22/24 History methocarbamol 750 mg tablet 750 mg PO TID 03/30/21 07/02/24 History tirzepatide 5 mg/0.5 mL 5 mg subcut WEEKLY weight loss 06/25/24 10/22/24 History subcutaneous pen injector (Eliel) peg 3350-electrolytes 236 240 ml PO Q10M #4,000 mL 07/13/24 10/07/24 Rx gram-22.74 gram-6.74 gram-5.86 gram solution (Golytely) morphine 15 mg tablet,extended 15 mg PO Q12H 10/07/24 10/22/24 History release Allergies Allergy/AdvReac Type Severity Reaction Status Date / Time No Known Allergies Allergy Verified 10/22/24 11:59 Vital Signs Vital Signs - 24 hr 10/22/24 12:05 Temperature 97.5 F L Pulse Rate 85 Respiratory Rate 18 Blood Pressure 124/84 Pulse Oximetry 98 Oxygen Delivery Room Air Exam Const: General: cooperative and healthy appearing Resp: Effort & Inspection: normal respiratory effort and able to speak in complete sentences Auscultation: clear to auscultation bilaterally Cardio: Rate: regular rate Rhythm: regular rhythm GI: Inspection: normal to inspection GI Palp: No No hepatosplenomegaly present Auscultation: normal bowel sounds Rectal Exam: deferred Skin: General skin exam: normal color Psych: Appearance: grossly normal Mental Status: mental status grossly normal Assessment and Plan Assessment and plan (1) History of colonic polyps: Code(s): Z86.0100 - Personal history of colon polyps, unspecified Status: Acute Assessment and Plan: The patient is deemed a good candidate for the procedure. Consent signed. Will proceed.
--- NOTE | 2024-10-22 13:16 | S_PTH ---
PATIENT: Alma Muhammad LOC: [facility] U#:[id number] AGE/SX: 63/F ROOM: RE10/22/[address]: Shamir Briggs MD : 1960 BED: DIS: 10/22/2024 SPEC #: [id number] RECD: 10/22/24 14:16 STATUS: EUGENIO REMyranda #: [id number] NATHALIA: 10/22/24 13:[address]: Shamir Briggs DEPT: [facility] Surgical RECD BY: Sravanthi Mclain ENTERED: 10/22/24 14:17 SP TYPE: Surgical OTHR DR: Jose E VilchisMD Tissues: A - Colon Polypectomy Procedures: Hematoxylin and Eosin Stain Gross and Microscopic Level 4
[2024-10-22 13:18] VITALS: BP 119/59; PULSE 76; RESP 18; O2SAT 98
[2024-10-22 13:28] VITALS: BP 123/59; PULSE 72; RESP 18; O2SAT 100
[2024-10-22 13:38] VITALS: BP 120/79; PULSE 75; RESP 20; O2SAT 100
== END 2024-10-22 13:47 | disposition home or self-care (01) ==
PROVIDERS: PCP Internal Medicine; Referring Provider Internal Medicine; Visit Provider Internal Medicine Gastroenterology
PROC: 0DJD8ZZ Inspection of Lower Intestinal Tract, Via Natural or Artificial Opening Endoscopic (ICD-10-PCS; CPT 45378; principal; 2024-10-22 13:00)
DX: Z12.11 Encounter for screening for malignant neoplasm of colon (principal); D12.2 Benign neoplasm of ascending colon; K57.30 Diverticulosis of large intestine without perforation or abscess without bleeding; K21.9 Gastro-esophageal reflux disease without esophagitis; G47.33 Obstructive sleep apnea (adult) (pediatric); F41.9 Anxiety disorder, unspecified; M81.0 Age-related osteoporosis without current pathological fracture; J44.9 Chronic obstructive pulmonary disease, unspecified; M19.90 Unspecified osteoarthritis, unspecified site; F17.210 Nicotine dependence, cigarettes, uncomplicated; E66.01 Morbid (severe) obesity due to excess calories; Z68.41 Body mass index [BMI] 40.0-44.9, adult; Z79.84 Long term (current) use of oral hypoglycemic drugs; Z79.85 Long-term (current) use of injectable non-insulin antidiabetic drugs; Z79.891 Long term (current) use of opiate analgesic; Z98.890 Other specified postprocedural states; Z98.51 Tubal ligation status; Z80.3 Family history of malignant neoplasm of breast
CPT/HCPCS: 45385; 88305; J2003; J2704; J7120